=== PATIENT | female | born 1995 | race Caucasian/White ===

== ENCOUNTER 2018-08-08 00:39 | Emergency (ER) | payer MEDICAID ==
[2018-08-08] MEDS ORDERED: Ketorolac 60 MG/2 ML SDV IM ONE (00:47)
--- NOTE | 2018-08-08 00:49 | EDM.PDOC ---
ED HPI GENERAL MEDICAL PROBLEM - General Chief Complaint: Abdominal Pain Stated Complaint: CRAMPS Time Seen by Provider: 08/08/18 00:46 - History of Present Illness INITIAL COMMENTS - FREE TEXT/NARRATIVE: HISTORY AND PHYSICAL: History of present illness: Patient 22-year-old female with no significant past medical history presents with concern of abdominal cramping she had no vomiting no diarrhea no fever chills or other complaints she's here since she had to leave work for medical screening exam Review of systems: As per history of present illness and below otherwise all systems reviewed and negative. Past medical history: As per history of present illness and as reviewed below otherwise noncontributory. Surgical history: As per history of present illness and as reviewed below otherwise noncontributory. Social history: No reported history of drug or alcohol abuse. Family history: As per history of present illness and as reviewed below otherwise noncontributory. Physical exam: HEENT: Atraumatic, normocephalic, pupils reactive, negative for conjunctival pallor or scleral icterus, mucous membranes moist, throat clear, neck supple, nontender, trachea midline. Lungs: Clear to auscultation, breath sounds equal bilaterally, chest nontender. Heart: S1S2, regular, negative for clicks, rubs, or JVD. Abdomen: Soft, nondistended, nontender. Negative for masses or hepatosplenomegaly. Negative for costovertebral tenderness. Pelvis: Stable nontender. Genitourinary: Deferred. Rectal: Deferred. Extremities: Atraumatic, negative for cords or calf pain. Neurovascular unremarkable. Neuro: Awake, alert, oriented. Cranial nerves II through XII unremarkable. Cerebellum unremarkable. Motor and sensory unremarkable throughout. Exam nonfocal. Diagnostics: CBC CMP UA hCG Therapeutics: Toradol 60 mg IM Impression: #1 abdominal cramping #2 medical screening exam Definitive disposition and diagnosis as appropriate pending reevaluation and review of above. - Related Data Allergies Allergy/AdvReac Type Severity Reaction Status Date / Time No Known Allergies Allergy Verified 08/08/18 00:46 Home Meds: Home Meds . [No Known Home Meds] 08/08/18 [History] ED ROS GENERAL - Review of Systems Review Of Systems: ROS reveals no pertinent complaints other than HPI. ED EXAM, GENERAL - Physical Exam Exam: See Below (The dictation) Course - Orders/Labs/Meds Orders: Active Orders hr Category Date Time Status CBC WITH AUTO DIFF [HEME] Stat Lab 08/08/18 00:46 Ordered HCG QUALITATIVE,URINE [URCHEM] Stat Lab 08/08/18 00:47 Ordered Departure - Departure Time of Disposition: 00:48 Disposition: Home, Self-Care 01 Condition: Good Clinical Impression: Encounter for medical screening examination - Discharge Information Additional Instructions: The following information is given to patients seen in the emergency department who are being discharged to home. This information is to outline your options for follow-up care. We provide all patients seen in our emergency department with a follow-up referral. The need for follow-up, as well as the timing and circumstances, are variable depending upon the specifics of your emergency department visit. If you don't have a primary care physician on staff, we will provide you with a referral. We always advise you to contact your personal physician following an emergency department visit to inform them of the circumstance of the visit and for follow-up with them and/or the need for any referrals to a consulting specialist. The emergency department will also refer you to a specialist when appropriate. This referral assures that you have the opportunity for followup care with a specialist. All of these measure are taken in an effort to provide you with optimal care, which includes your followup. Under all circumstances we always encourage you to contact your private physician who remains a resource for coordinating your care. When calling for followup care, please make the office aware that this follow-up is from your recent emergency room visit. If for any reason you are refused follow-up, please contact the [facility] emergency department at and asked to speak to the emergency department charge nurse. Follow-up primary medical doctor Candy as directed and return as needed as discussed - My Orders Last 24 Hours: My Active Orders 08/08/18 00:46 CBC WITH AUTO DIFF [HEME] Stat 08/08/18 00:47 HCG QUALITATIVE,URINE [URCHEM] Stat - Assessment/Plan Last 24 Hours: My Active Orders 08/08/18 00:46 CBC WITH AUTO DIFF [HEME] Stat 08/08/18 00:47 HCG QUALITATIVE,URINE [URCHEM] Stat
[2018-08-08 01:37] LABS: CHLORIDE,CL 102 mmol/L (98-107); SODIUM,NA 141 mmol/L (136-145)
== END 2018-08-08 02:12 | disposition home or self-care (01) ==
LOC: MW.ED 00:39
DX: R10.9 Unspecified abdominal pain (principal)
CPT/HCPCS: 36415; 80053; 81003; 81025; 85025; 96372; 99284; J1885; 99283

== ENCOUNTER 2018-09-19 19:18 | Emergency (ER) | payer MEDICAID ==
[2018-09-19] MEDS ORDERED: Ondansetron 4 MG/2 ML SDV IVPUSH ONE (19:38)
[2018-09-19] MEDS ORDERED: Sodium Chloride 0.9% 1,000 ML IV ONE (19:38)
[2018-09-19] MEDS ORDERED: diphenhydrAMINE 50 MG/ML SDV IVPUSH ONE (19:38)
[2018-09-19] MEDS ORDERED: Sodium Chloride 0.9% 2.5 ML Syringe FLUSH PRN (19:38)
[2018-09-19] MEDS ORDERED: Sodium Chloride 0.9% 10 ML Syringe FLUSH PRN (19:38)
[2018-09-19] MEDS ORDERED: Ketorolac 30 MG/ML SDV IVPUSH ONE (19:38)
--- NOTE | 2018-09-19 19:42 | EDM.PDOC ---
ED HPI GENERAL MEDICAL PROBLEM - General Chief Complaint: Headache Stated Complaint: HEADACHE Time Seen by Provider: 09/19/18 19:31 - History of Present Illness INITIAL COMMENTS - FREE TEXT/NARRATIVE: HISTORY AND PHYSICAL: History of present illness: The patient is a healthy 22-year-old female who presents with complaints of frontal headache extending to the top of her head associated with nausea and no vomiting that has been ongoing, on and off in intensity, for the last 3 days. 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 She says she cannot recall the last time she had an eye exam. She has tried over-the -counter Tylenol but no other medications are preps. She has no fevers no chills no cough runny nose chest pain or shortness of breath and no abdominal complaints. The patient denies and says that she has an IUD in place. The patient has no neurosensory changes or weakness in her extremities and no midline neck or back pain, no recent history of trauma. The patient does admit that she lives in [place] on and has recently relocated here and the weather has caused her to feel off. She does have seasonal allergies and hayfever and is not sure if that is what triggering this. Review of systems: As per history of present illness and below otherwise all systems reviewed and negative. Past medical history: As per history of present illness and as reviewed below otherwise noncontributory. Surgical history: As per history of present illness and as reviewed below otherwise noncontributory. Social history: No reported history of drug or alcohol abuse. Family history: As per history of present illness and as reviewed below otherwise noncontributory. Physical exam: General: Well-developed well-nourished female who is nontoxic and vital signs were noted by me. HEENT: Atraumatic, normocephalic, pupils reactive, negative for conjunctival pallor or scleral icterus, mucous membranes moist, throat clear, neck supple, nontender, trachea midline. There is some mild tenderness with palpation of the maxillary and frontal sinuses and there is no cervical adenopathy or nuchal rigidity. The turbinates are boggy bilaterally Lungs: Clear to auscultation, breath sounds equal bilaterally, chest nontender. Heart: S1S2, regular, rate and rhythm no overt murmurs Abdomen: Soft, nondistended, nontender. Negative for masses or hepatosplenomegaly. Negative for costovertebral tenderness. Pelvis: Deferred Genitourinary: Deferred. Rectal: Deferred. Extremities: Atraumatic, pedal edema Neurovascular unremarkable. Neuro: Awake, alert, oriented. Cranial nerves II through XII unremarkable. Cerebellum unremarkable. Motor and sensory unremarkable throughout. Exam nonfocal. Diagnostics: CT of the head. UCG UA urine culture Therapeutics: IV fluids Zofran and Benadryl Toradol Impression: Headache with history of seasonal allergies and sinus issues, UTI Definitive disposition and diagnosis as appropriate pending reevaluation and review of above. headache Pain Score (Numeric/FACES): 7 - Related Data Allergies Allergy/AdvReac Type Severity Reaction Status Date / Time No Known Allergies Allergy Verified 09/19/18 19:28 Home Meds: Home Meds . 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: - Past Surgical History Female Surgical History: Reports: Other (See Below) Other Female Surgeries/Procedures: cervix sx Social & Family History - Family History Family Medical History: Noncontributory - Tobacco Use Smoking Status *Q: Current Every Day Smoker Years of Tobacco use: 1 Packs/Tins Daily: 0.5 - Caffeine Use Caffeine Use: Reports: None - Recreational Drug Use Recreational Drug Use: Yes Recreational Drug Type: Reports: Marijuana/Hashish Recreational Drug Use Frequency: Socially Recreational Drug Last Use: "last week" ED ROS GENERAL - Review of Systems Review Of Systems: ROS reveals no pertinent complaints other than HPI. ED EXAM, GENERAL - Physical Exam Exam: See Below (See dictation) Course - Vital Signs Last Recorded V/S: Last Vital Signs Temp 36.1 C 09/19/18 19:20 Pulse 89 09/19/18 20:51 Resp 16 09/19/18 20:51 BP 116/76 09/19/18 20:51 Pulse Ox 99 09/19/18 20:51 - Orders/Labs/Meds Orders: Active Orders 24 hr Category Date Time Status CULTURE URINE [RM] Stat Lab 09/19/18 19:43 Received Sodium Chloride 0.9% [Saline Flush] Med 09/19/18 19:38 Active 10 ml FLUSH ASDIRECTED PRN Sodium Chloride 0.9% [Saline Flush] Med 09/19/18 19:38 Active 2.5 ml FLUSH ASDIRECTED PRN Saline Lock Insert [OM.PC] Stat Oth 09/19/18 19:37 Ordered Medication Orders Sodium Chloride (Saline Flush) 10 ml FLUSH ASDIRECTED PRN PRN Reason: Keep Vein Open Last Admin: 09/19/18 19:52 Dose: 10 ml Sodium Chloride (Saline Flush) 2.5 ml FLUSH ASDIRECTED PRN PRN Reason: Keep Vein Open Last Admin: 09/19/18 19:52 Dose: 2.5 ml Labs: Laboratory Tests 09/19/18 09/19/18 Range/Units 19:43 19:43 Urine Color YELLOW Urine Appearance SLT CLOUDY Urine pH 6.0 (5.0-8.0) Ur Specific [place] 1.015 (1.001-1.035) Urine Protein NEGATIVE (NEGATIVE) mg/dL Urine Glucose (UA) NEGATIVE (NEGATIVE) mg/dL Urine Ketones NEGATIVE (NEGATIVE) mg/dL Urine Occult Blood LARGE H (NEGATIVE) Urine Nitrite NEGATIVE (NEGATIVE) Urine Bilirubin NEGATIVE (NEGATIVE) Urine Urobilinogen 0.2 (<2.0) EU/dL Ur Leukocyte Esterase MODERATE H (NEGATIVE) Urine RBC 4-8 (0-2/HPF) Urine WBC 4-7 (0-5/HPF) Ur Epithelial Cells MANY (NONE-FEW) Urine Bacteria 1+ H (NEGATIVE) Urine HCG, Qual NEGATIVE (NEGATIVE) Meds: Medications Generic Name Dose Route Start Last Admin Trade Name Freq PRN Reason Stop Dose Admin Sodium Chloride 10 ml 09/19/18 19:38 09/19/18 19:52 Saline Flush FLUSH 10 ml ASDIRECTED PRN Administration Keep Vein Open Sodium Chloride 2.5 ml 09/19/18 19:38 09/19/18 19:52 Saline Flush FLUSH 2.5 ml ASDIRECTED PRN Administration Keep Vein Open Discontinued Medications Generic Name Dose Route Start Last Admin Trade Name Freq PRN Reason Stop Dose Admin Diphenhydramine HCl 50 mg 09/19/18 19:38 09/19/18 19:52 Benadryl IVPUSH 08/05/19 19:39 50 mg ONETIME ONE Administration Sodium Chloride 1,000 mls @ 999 mls/hr 09/19/18 19:38 09/19/18 19:52 Normal Saline IV 09/19/18 20:38 999 mls/hr STAT ONE Administration Ketorolac Tromethamine 30 mg 09/19/18 19:38 09/19/18 19:52 Toradol IVPUSH 09/19/18 19:39 30 mg ONETIME ONE Administration Ondansetron HCl 4 mg 09/19/18 19:38 09/19/18 19:52 Zofran IVPUSH 09/19/18 19:39 4 mg ONETIME ONE Administration Departure - Departure Time of Disposition: 21:17 Disposition: Home, Self-Care 01 Condition: Good Clinical Impression: Headache Qualifiers: Headache type: unspecified Headache chronicity pattern: unspecified pattern Intractability: not intractable Qualified Code(s): R51 - Headache UTI (urinary tract infection) Qualifiers: Urinary tract infection type: site unspecified Hematuria presence: without hematuria Qualified Code(s): N39.0 - Urinary tract infection, site not specified - Discharge Information Referrals: PCP,None [Primary Care Provider] - Forms: ED Department Discharge Additional Instructions: The following information is given to patients seen in the emergency department who are being discharged to home. This information is to outline your options for follow-up care. We provide all patients seen in our emergency department with a follow-up referral. The need for follow-up, as well as the timing and circumstances, are variable depending upon the specifics of your emergency department visit. If you don't have a primary care physician on staff, we will provide you with a referral. We always advise you to contact your personal physician following an emergency department visit to inform them of the circumstance of the visit and for follow-up with them and/or the need for any referrals to a consulting specialist. The emergency department will also refer you to a specialist when appropriate. This referral assures that you have the opportunity for followup care with a specialist. All of these measure are taken in an effort to provide you with optimal care, which includes your followup. Under all circumstances we always encourage you to contact your private physician who remains a resource for coordinating your care. When calling for followup care, please make the office aware that this follow-up is from your recent emergency room visit. If for any reason you are refused follow-up, please contact the [facility] emergency department at and ask to speak to the emergency department charge nurse. [facility] Primary care- Internal Medicine and [place] [id number] [address] [place] [id number] Push hydration and try to avoid the heat. Please go and get an eye exam just at baseline and try to reduce your screen time as much as possible.. Please take the antibiotics as you have been prescribed for urinary urinary tract infection. Continue use [id number] Tylenol and add ibuprofen/Motrin or other [id number] meds as you choose. Please call and schedule a follow-up appointment in our clinic with one of our providers or with your provider for further care and reevaluation of these symptoms. Return to ER as needed and as discussed - My Orders Last 24 Hours: My Active Orders 09/19/18 19:37 Saline Lock Insert [OM.PC] Stat 09/19/18 19:38 Sodium Chloride 0.9% [Saline Flush] 10 ml FLUSH ASDIRECTED PRN Sodium Chloride 0.9% [Saline Flush] 2.5 ml FLUSH ASDIRECTED PRN 09/19/18 19:43 CULTURE URINE [RM] Stat - Assessment/Plan Last 24 Hours: My Active Orders 09/19/18 19:37 Saline Lock Insert [OM.PC] Stat 09/19/18 19:38 Sodium Chloride 0.9% [Saline Flush] 10 ml FLUSH ASDIRECTED PRN Sodium Chloride 0.9% [Saline Flush] 2.5 ml FLUSH ASDIRECTED PRN 09/19/18 19:43 CULTURE URINE [RM] Stat
--- NOTE | 2018-09-19 21:11 | CT ---
INDICATION: Headache TECHNIQUE: CT head without contrast. COMPARISON: None available FINDINGS: The ventricles and sulci are within normal limits. There is no mass effect or midline shift. There is no loss of burrell-white differentiation. There is no evidence of an acute intracranial hemorrhage. No acute calvarial fracture is seen. The visualized paranasal sinuses and mastoid air cells are clear. The visualized orbits are within normal limits. The adenoids and palatine tonsils are enlarged. IMPRESSION: No evidence of an acute intracranial hemorrhage, mass effect or loss of burrell-white differentiation. Dictated by Virgilio Chun MD @ 09/19/2018 9:10:16 PM Please note that all CT scans at this facility use dose modulation, iterative reconstruction, and/or weight-based dosing when appropriate to reduce radiation dose to as low as reasonably achievable. Dictated by: Virgilio Chun MD @ 09/19/2018 21:10:31 (Electronically Signed)
== END 2018-09-19 21:35 | disposition home or self-care (01) ==
LOC: MW.ED 19:18
DX: R51 Headache (principal); N39.0 Urinary tract infection, site not specified; F17.210 Nicotine dependence, cigarettes, uncomplicated
CPT/HCPCS: 70450; 81001; 81025; 87086; 87088; 87186; 96361; 96374; 96375; 99284; J1200; J1885; J2405; J7040

== ENCOUNTER 2018-12-08 21:03 | Emergency (ER) | payer SELFPAY ==
--- NOTE | 2018-12-08 21:14 | EDM.PDOC ---
ED HPI GENERAL MEDICAL PROBLEM - General Stated Complaint: COUGH Time Seen by Provider: 12/08/18 21:09 - History of Present Illness INITIAL COMMENTS - FREE TEXT/NARRATIVE: HISTORY AND PHYSICAL: History of present illness: Patient's 23-year-old female sensory concern of cough with posttussive emesis. Patient states she's had a cough for approximately 2 weeks and posttussive emesis tonight. There's been no fever chills shortness of breath or other complaints. Review of systems: As per history of present illness and below otherwise all systems reviewed and negative. Past medical history: As per history of present illness and as reviewed below otherwise noncontributory. Surgical history: As per history of present illness and as reviewed below otherwise noncontributory. Social history: No reported history of drug or alcohol abuse. Family history: As per history of present illness and as reviewed below otherwise noncontributory. Physical exam: HEENT: Atraumatic, normocephalic, pupils reactive, negative for conjunctival pallor or scleral icterus, mucous membranes moist, throat clear, neck supple, nontender, trachea midline. Lungs: Clear to auscultation, breath sounds equal bilaterally, chest nontender. Heart: S1S2, regular, negative for clicks, rubs, or JVD. Abdomen: Soft, nondistended, nontender. Negative for masses or hepatosplenomegaly. Negative for costovertebral tenderness. Pelvis: Stable nontender. Genitourinary: Deferred. Rectal: Deferred. Extremities: Atraumatic, negative for cords or calf pain. Neurovascular unremarkable. Neuro: Awake, alert, oriented. Cranial nerves II through XII unremarkable. Cerebellum unremarkable. Motor and sensory unremarkable throughout. Exam nonfocal. Diagnostics: Chest x-ray influenza screen Therapeutics: None Impression: #1 tracheobronchitis probable viral syndrome Definitive disposition and diagnosis as appropriate pending reevaluation and review of above. - Related Data Allergies Allergy/AdvReac Type Severity Reaction Status Date / Time No Known Allergies Allergy Verified 09/19/18 19:28 Home Meds: Home Meds . 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 ED EXAM, GENERAL - Physical Exam Exam: See Below (dictation) Course - Vital Signs Last Recorded V/S: Last Vital Signs Temp 36.4 C 12/08/18 21:20 Pulse 98 12/08/18 21:20 Resp 16 12/08/18 21:20 BP 135/71 12/08/18 21:20 Pulse Ox 98 12/08/18 21:20 - Orders/Labs/Meds Orders: Active Orders 24 hr Category Date Time Status CULTURE URINE [RM] Stat Lab 12/08/18 21:49 Received Labs: Laboratory Tests 12/08/18 Range/Units 21:49 Urine Color YELLOW Urine Appearance SLT CLOUDY Urine pH 6.0 (5.0-8.0) Ur Specific [place] 1.015 (1.001-1.035) Urine Protein NEGATIVE (NEGATIVE) mg/dL Urine Glucose (UA) NEGATIVE (NEGATIVE) mg/dL Urine Ketones NEGATIVE (NEGATIVE) mg/dL Urine Occult Blood NEGATIVE (NEGATIVE) Urine Nitrite NEGATIVE (NEGATIVE) Urine Bilirubin NEGATIVE (NEGATIVE) Urine Urobilinogen 0.2 (<2.0) EU/dL Ur Leukocyte Esterase SMALL H (NEGATIVE) Urine RBC NONE SEEN (0-2/HPF) Urine WBC 1-3 (0-5/HPF) Ur Epithelial Cells FEW (NONE-FEW) Urine Bacteria 1+ H (NEGATIVE) Urine Mucus LIGHT (NONE-MOD) Departure - Departure Time of Disposition: 23:13 Disposition: Home, Self-Care 01 Condition: Good Clinical Impression: Pneumonia UTI (urinary tract infection) Qualifiers: Urinary tract infection type: site unspecified Hematuria presence: without hematuria Qualified Code(s): N39.0 - Urinary tract infection, site not specified - Discharge Information Referrals: PCP,None [Primary Care Provider] - Additional Instructions: The following information is given to patients seen in the emergency department who are being discharged to home. This information is to outline your options for follow-up care. We provide all patients seen in our emergency department with a follow-up referral. The need for follow-up, as well as the timing and circumstances, are variable depending upon the specifics of your emergency department visit. If you don't have a primary care physician on staff, we will provide you with a referral. We always advise you to contact your personal physician following an emergency department visit to inform them of the circumstance of the visit and for follow-up with them and/or the need for any referrals to a consulting specialist. The emergency department will also refer you to a specialist when appropriate. This referral assures that you have the opportunity for followup care with a specialist. All of these measure are taken in an effort to provide you with optimal care, which includes your followup. Under all circumstances we always encourage you to contact your private physician who remains a resource for coordinating your care. When calling for followup care, please make the office aware that this follow-up is from your recent emergency room visit. If for any reason you are refused follow-up, please contact the [facility] emergency department at and asked to speak to the emergency department charge nurse. Augmentin as prescribed follow-up primary medical doctor as needed as discussed return as needed as discussed - My Orders Last 24 Hours: My Active Orders 12/08/18 21:49 CULTURE URINE [RM] Stat - Assessment/Plan Last 24 Hours: My Active Orders 12/08/18 21:49 CULTURE URINE [RM] Stat
--- NOTE | 2018-12-08 22:02 | CR ---
INDICATION: Shortness of breath, pain TECHNIQUE: Frontal view of the chest. COMPARISON: None FINDINGS/IMPRESSION: There is increased opacity of the peripheral left lung base which may reflect atelectasis or infiltrate. The right lung is clear. There is no sizable pleural effusion or pneumothorax. The cardiomediastinal silhouette is normal. The visualized osseous structures are unremarkable. Dictated by Luciano Simon MD @ Dec 08 2018 9:59PM Signed by Dr. Luciano Simon @ Dec 08 2018 10:01PM
[2018-12-08] MEDS ORDERED: Amoxicillin/Clavulanate K 875-125 MG Tab PO ONE (23:15)
== END 2018-12-08 23:26 | disposition home or self-care (01) ==
LOC: MW.ED 21:03
DX: J18.9 Pneumonia, unspecified organism (principal); N39.0 Urinary tract infection, site not specified; J40 Bronchitis, not specified as acute or chronic
CPT/HCPCS: 71045; 81001; 87086; 87088; 87186; 87804; 99283; A9270

== ENCOUNTER 2019-01-29 03:08 | Emergency (ER) | payer SELFPAY ==
[2019-01-29] MEDS ORDERED: Lidocaine 1% with EPINEPHrine 1:100,000 20 ML MDV INJECT ONE (03:25)
[2019-01-29] MEDS ORDERED: Bacitracin Oint 1 GM U/D Packet TOP ONE (03:26)
--- NOTE | 2019-01-29 03:38 | EDM.PDOC ---
ED HPI GENERAL MEDICAL PROBLEM - General Chief Complaint: Laceration Stated Complaint: CUT ON LT ARM Time Seen by Provider: 01/29/19 03:16 - History of Present Illness INITIAL COMMENTS - FREE TEXT/NARRATIVE: HISTORY AND PHYSICAL: History of present illness: The patient is a 23-year-old female who was brought here by her cousin after he noticed that she had multiple cuts on her left forearm which were self- inflicted. The patient here is very quiet and admits to me that they were self- inflicted but she will not tell me what's going on that triggered this. She denies any history of depression or anxiety and takes no medications and does not have a significant other. She does admit to drinking alcohol tonight but denies drug use or taking any [id number] medications. The cousin says he has not noticed her being depressed of late and they do live together and she does drink on the weekends but she has never done anything like this before and he is not sure where it originated from. He says he is not super close with her on a interpersonal level but they do live together and I do talk but not about any deep issues so he says he cannot offer much information about her psychological status or well-being. The patient tells me she has no physical complaints such as cough fever runny nose sore throat vomiting diarrhea abdominal pain and she has been eating and drinking normally. She denies but did have a child 3 years ago and states that her tetanus is up-to- date. She has no pain in her left forearm and is right-hand dominant. She has no numbness or tingling in her hand or forearm. She is not very forthcoming about tonight's events or why they were triggered and saying she is not sure why this happened and why she is feeling this way but is tearful throughout my conversation with her. She does tell me through the course of my interview with her that I can do whatever I want to help her and she does state when directly asked that she would like help The pt denies any history of cutting. Review of systems: As per history of present illness and below otherwise all systems reviewed and negative. Past medical history: As per history of present illness and as reviewed below otherwise noncontributory. Surgical history: As per history of present illness and as reviewed below otherwise noncontributory. Social history: No reported history of drug or alcohol abuse. Family history: As per history of present illness and as reviewed below otherwise noncontributory. Physical exam: General: Well-developed well-nourished mildly overweight female who is nontoxic and vital signs are noted by me. She is tearful on my evaluation but very quiet and not very forthcoming HEENT: Atraumatic, normocephalic, pupils reactive, negative for conjunctival pallor or scleral icterus, mucous membranes moist, throat clear, neck supple, nontender, trachea midline. Sclera are slightly injected bilaterally Lungs: Clear to auscultation, breath sounds equal bilaterally, chest nontender. Heart: S1S2, regular rate and rhythm no overt murmurs Abdomen: Soft, nondistended, nontender. Negative for masses or hepatosplenomegaly. Negative for costovertebral tenderness. Pelvis: Stable nontender. Genitourinary: Deferred. Rectal: Deferred. Extremities: Atraumatic and full range of motion of all extremities with the exception of the volar surface of the left forearm where there are 4 distinct laceration seen 3 of which are superficial and one extends to the subcutaneous tissue. There is a 16 cm laceration, a 19 cm laceration, an 8 cm laceration all of which are very superficial and run longitudinal in a lengthwise fashion along the volar surface of the forearm in erratic directions. There is only one laceration with any depth and its total length is 11 cm but only 9.5 cm of the total length extent to the subcutaneous tissue and there is no muscle or any deep structures visualized. The base can be seen and there are no foreign bodies appreciated. The compartment is soft and there is no soft tissue swelling and the patient has full intact function of the hand and the wrist with flexion extension and sensation. The legs are, negative for cords or calf pain. Neurovascular unremarkable. Neuro: Awake, alert, oriented. Cranial nerves II through XII unremarkable. Cerebellum unremarkable. Motor and sensory unremarkable throughout. Exam nonfocal. Diagnostics: CBC CMP TSH alcohol level of aspirin and Tylenol levels UA UCG UDS EKG Therapeutics: Cleansing of wounds by nursing, lidocaine with epinephrine for suture repair of the laceration with depth. Bacitracin and nonstick dressing applied by nursing Procedure note: After the wounds were irrigated they were all reexplored and there is only one that requires suture repair. The total length of that laceration is 11 cm but only 9.5 cm extending to the subcutaneous tissue requiring closure. Lidocaine with epinephrine was infused in the wound and the skin edges were reapproximated using a total number of # 13 sutures of 5-0 nylon placed in a simple interrupted fashion. There were no complications and the patient tolerated the procedure well. Steri straps were also applied to the laceration as well as to an of the other superficial lacerations per nursing the Bacitracin and nonstick dressing were applied. In my conversation with the patient I was very clear from the onset that aside from fixing her wounds we would need to be addressing the intent behind his wounds and her intention now that he of injuring herself. She does tell me that she regrets doing this but she cannot explain what triggered this and why she has performed this on her arm. I told her that she will need further evaluation as this is a very serious gesture and that she will need to be transferred to be evaluated by psychiatrist and she says that I "can do whatever I want". When directly asked if she would like help she starts crying and does not her head. She has just not very insightful into her disease process or why this occurred and her emotional state at this point. 0410: The case was discussed with one call who discussed with Dr. Lipscomb the psychiatrist at [facility] who accepts the patient for transfer. The patient was made aware of this and she is comfortable and willing to go but an emergency residential form will also be formed out by me. Impression: suicidal intent with multiple Lacerations of left forearm Definitive disposition and diagnosis as appropriate pending reevaluation and review of above. - Related Data Allergies Allergy/AdvReac Type Severity Reaction Status Date / Time No Known Allergies Allergy Verified 01/29/19 03:21 Home Meds: Home Meds . [No Known Home Meds] 08/08/18 [History] Past Medical History - Past Health History Medical/Surgical History: Denies Medical/Surgical History Genitourinary History: Reports: None [employer] History: Reports: - Infectious Disease History Infectious Disease History: Reports: None - Past Surgical History Female Surgical History: Reports: Other (See Below) Other Female Surgeries/Procedures: cervix sx Social & Family History - Family History Family Medical History: Noncontributory - Caffeine Use Caffeine Use: Reports: None ED ROS GENERAL - Review of Systems Review Of Systems: Comprehensive ROS is negative, except as noted in HPI. ED EXAM, SKIN/RASH Exam: See Below (see dictation) Course - Vital Signs Last Recorded V/S: Last Vital Signs Temp 36.7 C 01/29/19 03:19 Pulse 111 H 01/29/19 03:50 Resp 16 01/29/19 03:50 BP 127/92 H 01/29/19 03:50 Pulse Ox 98 01/29/19 03:50 - Orders/Labs/Meds Orders: Active Orders 24 hr Category Date Time Status Communication Order [RC] STAT Care 01/29/19 03:26 Active Communication Order [RC] STAT Care 01/29/19 04:19 Ordered EKG Documentation Completion [RC] STAT Care 01/29/19 03:25 Active DRUG SCREEN, URINE [URCHEM] Stat Lab 01/29/19 03:25 Ordered HCG QUALITATIVE,URINE [URCHEM] Stat Lab 01/29/19 03:25 Ordered UA RFX MART AND CULT IF INDIC [URIN] Stat Lab 01/29/19 03:25 Ordered Labs: Laboratory Tests 01/29/19 01/29/19 Range/Units 03:35 03:35 WBC 10.10 (4.0-11.0) K/uL RBC 5.20 (4.30-5.90) M/uL Hgb 15.9 (12.0-16.0) g/dL Hct 47.2 H (36.0-46.0) % MCV 90.8 (80.0-98.0) fL MCH 30.6 (27.0-32.0) pg MCHC 33.7 (31.0-37.0) g/dL RDW Std Deviation 43.6 (28.0-62.0) fl RDW Coeff of Brunilda 13 (11.0-15.0) % Plt Count 220 (150-400) K/uL MPV 11.80 (7.40-12.00) fL Neut % (Auto) 68.6 (48.0-80.0) % Lymph % (Auto) 27.7 (16.0-40.0) % [place] % (Auto) 3.3 (0.0-15.0) % Eos % (Auto) 0.2 (0.0-7.0) % Baso % (Auto) 0.2 (0.0-1.5) % Neut # (Auto) 6.9 H (1.4-5.7) K/uL Lymph # (Auto) 2.8 H (0.6-2.4) K/uL [place] # (Auto) 0.3 (0.0-0.8) K/uL Eos # (Auto) 0.0 (0.0-0.7) K/uL Baso # (Auto) 0.0 (0.0-0.1) K/uL Nucleated RBC % 0.0 /100WBC Nucleated RBCs # 0 K/uL Sodium 141 (136-145) mmol/L Potassium 3.4 L (3.5-5.1) mmol/L Chloride 104 (98-107) mmol/L Carbon Dioxide 27.0 (21.0-32.0) mmol/L BUN 7 (7.0-18.0) mg/dL Creatinine 0.9 (0.6-1.0) mg/dL Est Cr Clr Drug Dosing 78.20 mL/min Estimated GFR (MDRD) > 60.0 ml/min Glucose 88 (74-106) mg/dL Calcium 8.9 (8.5-10.1) mg/dL Total Bilirubin 0.5 (0.2-1.0) mg/dL AST 18 (15-37) IU/L ALT 26 (14-63) IU/L Alkaline Phosphatase 100 (46-116) U/L Total Protein 8.2 (6.4-8.2) g/dL Albumin 4.0 (3.4-5.0) g/dL Globulin 4.2 H (2.6-4.0) g/dL Albumin/Globulin Ratio 1.0 (0.9-1.6) TSH 3rd Generation 3.25 (0.36-3.74) uIU/mL Salicylates 3.7 (0-20) mg/dL Acetaminophen <2.0 ug/mL Ethyl Alcohol 172 mg/dL Meds: Medications Discontinued Medications Generic Name Dose Route Start Last Admin Trade Name Freq PRN Reason Stop Dose Admin Bacitracin 2 dose 01/29/19 03:26 01/29/19 03:44 Bacitracin Oint 1 Gm TOP 01/29/19 03:27 2 dose ONETIME ONE Administration Lidocaine/Epinephrine 20 ml 01/29/19 03:25 01/29/19 03:44 Xylocaine 1% With Epinephrine 1:100,000 INJECT 01/29/19 03:26 20 ml ONETIME ONE Administration Departure - Departure Time of Disposition: 04:22 Disposition: DC/Tfer to Psych Hosp/Unit 65 Condition: Good Clinical Impression: Laceration of arm, left, multiple sites Qualifiers: Encounter type: initial encounter Qualified Code(s): S41.112A - Laceration without foreign body of left upper arm, initial encounter Suicide and self-inflicted injury Qualifiers: Encounter type: initial encounter Qualified Code(s): X83.8XXA - Intentional self-harm by other specified means, initial encounter - Discharge Information Referrals: PCP,None [Primary Care Provider] - Forms: ED Department Discharge Sepsis Event Note - Evaluation Sepsis Screening Result: No Definite Risk - Focused Exam Vital Signs: Vital Signs Temp Pulse Resp BP Pulse Ox 01/29/19 03:50 111 H 16 127/92 H 98 01/29/19 03:19 36.7 C 121 H 16 151/121 H 97 Date Exam was Performed: 01/29/19 Time Exam was Performed: 04:19 - My Orders Last 24 Hours: My Active Orders 01/29/19 03:25 EKG Documentation Completion [RC] STAT DRUG SCREEN, URINE [URCHEM] Stat HCG QUALITATIVE,URINE [URCHEM] Stat UA RFX MART AND CULT IF INDIC [URIN] Stat 01/29/19 03:26 Communication Order [RC] STAT 01/29/19 04:19 Communication Order [RC] STAT - Assessment/Plan Last 24 Hours: My Active Orders 01/29/19 03:25 EKG Documentation Completion [RC] STAT DRUG SCREEN, URINE [URCHEM] Stat HCG QUALITATIVE,URINE [URCHEM] Stat UA RFX MART AND CULT IF INDIC [URIN] Stat 01/29/19 03:26 Communication Order [RC] STAT 01/29/19 04:19 Communication Order [RC] STAT
[2019-01-29 04:08] LABS: BLOOD UREA NITROGEN,BUN 7 mg/dL (7.0-18.0); CHLORIDE,CL 104 mmol/L (98-107); GLUCOSE RANDOM 88 mg/dL (74-106); POTASSIUM,K 3.4 mmol/L (3.5-5.1); SODIUM,NA 141 mmol/L (136-145)
[2019-01-29 04:09] LABS: ACETAMINOPHEN <2.0 ug/mL
== END 2019-01-29 05:40 ==
LOC: MW.ED 03:08
DX: S51.812A Laceration without foreign body of left forearm, initial encounter (principal); X78.9XXA Intentional self-harm by unspecified sharp object, initial encounter; Y93.G3 Activity, cooking and baking
CPT/HCPCS: 12004; 36415; 80053; 80305-QW; 81003; 81025; 84443; 85025; 93005; 99284; 99284-25; G0480

== ENCOUNTER 2019-02-12 17:35 | Emergency (ER) | payer SELFPAY | END 2019-02-12 17:51 | disposition home or self-care (01) | LOC: MW.ED 17:35 | DX: Z53.21 Procedure and treatment not carried out due to patient leaving prior to being seen by health care provider (principal) ==

== ENCOUNTER 2019-05-08 21:10 | Emergency (ER) | payer SELFPAY ==
--- NOTE | 2019-05-08 22:29 | EDM.PDOC ---
ED HPI GENERAL MEDICAL PROBLEM - General Chief Complaint: Respiratory Problem Stated Complaint: COUGH AND FEVER Time Seen by Provider: 05/08/19 22:29 Source of Information: Reports: Patient History Limitations: Reports: No Limitations - History of Present Illness INITIAL COMMENTS - FREE TEXT/NARRATIVE: HISTORY AND PHYSICAL: History of present illness: Patient is a 23-year-old female presents to the ED With complaint of cough x 4 days. She reports subjective fevers. Denies chest pain, shortness of breath, nausea, vomiting, abdominal pain. She denies significant past medical history. Review of systems: As per history of present illness and below otherwise all systems reviewed and negative. Past medical history: As per history of present illness and as reviewed below otherwise noncontributory. Surgical history: As per history of present illness and as reviewed below otherwise noncontributory. Social history: No reported history of drug or alcohol abuse. Family history: As per history of present illness and as reviewed below otherwise noncontributory. Physical exam: General: Patient sitting comfortably in no acute distress and nontoxic appearing HEENT: Atraumatic, normocephalic, pupils reactive, negative for conjunctival pallor or scleral icterus, mucous membranes moist, throat clear, neck supple, nontender, trachea midline. No meningeal signs. Lungs: Clear to auscultation, breath sounds equal bilaterally, chest nontender. Heart: S1S2, regular, negative for clicks, rubs, or overt murmur. Extremities: Atraumatic, negative for cords or calf pain. Neurovascular unremarkable. Neuro: Awake, alert, oriented. Cranial nerves II through XII unremarkable. Cerebellum unremarkable. Motor and sensory unremarkable throughout. Exam nonfocal. Notes: Diagnostics: none Therapeutics: none Prescriptions: Ventolin inhaler Impression: URI Plan: Use inhaler as needed as discussed Follow up with primary care provider Return to ED as needed as discussed Definitive disposition and diagnosis as appropriate pending reevaluation and review of above. back Pain Score (Numeric/FACES): 6 - Related Data Allergies Allergy/AdvReac Type Severity Reaction Status Date / Time No Known Allergies Allergy Verified 05/08/19 21:55 Home Meds: Home Meds Albuterol [Ventolin HFA] 1 puff INH Q4H #1 inhaler 05/08/19 [Rx] Past Medical History - Past Health History Medical/Surgical History: Denies Medical/Surgical History HEENT History: Reports: None Cardiovascular History: Reports: None Respiratory History: Reports: None Gastrointestinal History: Reports: None Genitourinary History: Reports: None VP RESPIRATORY History: Reports: Musculoskeletal History: Reports: None Neurological History: Reports: None Psychiatric History: Reports: Anxiety, Depression Endocrine/Metabolic History: Reports: None Hematologic History: Reports: None Dermatologic History: Reports: None - Infectious Disease History Infectious Disease History: Reports: None - Past Surgical History Female Surgical History: Reports: Other (See Below) Other Female Surgeries/Procedures: cervix sx Social & Family History - Family History Family Medical History: Noncontributory - Tobacco Use Smoking Status *Q: Never Smoker - Caffeine Use Caffeine Use: Reports: None - Recreational Drug Use Recreational Drug Use: Yes Recreational Drug Type: Reports: Marijuana/Hashish ED ROS GENERAL - Review of Systems Review Of Systems: Comprehensive ROS is negative, except as noted in HPI. ED EXAM, GENERAL - Physical Exam Exam: See Below (see dictation) Course - Vital Signs Last Recorded V/S: Last Vital Signs Temp 97.5 F 05/08/19 21:56 Pulse 99 05/08/19 21:56 Resp 20 05/08/19 21:56 BP 117/72 05/08/19 21:56 Pulse Ox 98 05/08/19 21:56 Departure - Departure Time of Disposition: 22:28 Disposition: Home, Self-Care 01 Condition: Good Clinical Impression: URI (upper respiratory infection) - Discharge Information Prescriptions: Albuterol [Ventolin HFA] 1 puff INH Q4H #1 inhaler Referrals: PCP,None [Primary Care Provider] - Forms: ED Department Discharge Additional Instructions: The following information is given to patients seen in the emergency department who are being discharged to home. This information is to outline your options for follow-up care. We provide all patients seen in our emergency department with a follow-up referral. The need for follow-up, as well as the timing and circumstances, are variable depending upon the specifics of your emergency department visit. If you don't have a primary care physician on staff, we will provide you with a referral. We always advise you to contact your personal physician following an emergency department visit to inform them of the circumstance of the visit and for follow-up with them and/or the need for any referrals to a consulting specialist. The emergency department will also refer you to a specialist when appropriate. This referral assures that you have the opportunity for follow-up care with a specialist. All of these measure are taken in an effort to provide you with optimal care, which includes your follow-up. Under all circumstances we always encourage you to contact your private physician who remains a resource for coordinating your care. When calling for follow-up care, please make the office aware that this follow-up is from your recent emergency room visit. If for any reason you are refused follow-up, please contact the [facility] Emergency Department at and asked to speak to the emergency department charge nurse. [facility] [address] [place] [id number] [address] Use inhaler as needed as discussed Follow up with primary care provider Return to ED as needed as discussed Sepsis Event Note - Evaluation Sepsis Screening Result: No Definite Risk - Focused Exam Vital Signs: Vital Signs Temp Pulse Resp BP Pulse Ox 05/08/19 21:56 97.5 F 99 20 117/72 98 Date Exam was Performed: 05/08/19 Time Exam was Performed: 22:30
== END 2019-05-08 22:45 | disposition home or self-care (01) ==
LOC: MW.ED 21:10
DX: J06.9 Acute upper respiratory infection, unspecified (principal)
CPT/HCPCS: 99283

== ENCOUNTER 2019-07-02 11:09 | Emergency (ER) | payer SELFPAY ==
[2019-07-02] MEDS ORDERED: Sodium Chloride 0.9% 1,000 ML IV ONE (11:11)
--- NOTE | 2019-07-02 11:18 | EDM.PDOC ---
ED HPI GENERAL MEDICAL PROBLEM - General Stated Complaint: PASSED OUT Time Seen by Provider: 07/02/19 11:11 Source of Information: Reports: Patient History Limitations: Reports: No Limitations - History of Present Illness INITIAL COMMENTS - FREE TEXT/NARRATIVE: HISTORY AND PHYSICAL: History of present illness: Patient is a 23-year-old female who is brought to the emergency room by ambulance after a bystander called due to seeing her passed out on a lawn. Patient states that she had been drinking alcohol last evening, last drink around midnight (will not share what/how much she drank). This morning she had gone outside to wait for friend to pick her up when she "fell asleep". EMS states that she is alert, oriented but is agreeable to coming to the emergency room for evaluation. Currently she is asymptomatic and offers no complaints or concerns. She does have multiple superficial lacerations to left forearm which she states she self inflicted although is not suicidal. She denies any drug abuse. Patient denies any fever, chills, headache, change in vision, syncope or near syncope. Denies any chest pain, back pain, shortness of breath or cough. Denies any abdominal pain, nausea, vomiting, diarrhea, constipation or dysuria. Has not noted any blood in urine or stool. Denies any chance of . Tdap is UTD. She denies any injury or trauma. Review of systems: As per history of present illness and below otherwise all systems reviewed and negative. Past medical history: As per history of present illness and as reviewed below otherwise noncontributory. Surgical history: As per history of present illness and as reviewed below otherwise noncontributory. Social history: See social history for further information Family history: As per history of present illness and as reviewed below otherwise noncontributory. Physical exam: General: Well-developed and well-nourished 23-year-old female. Alert and appropriate for age. Nontoxic-appearing and in no acute distress. HEENT: Atraumatic, normocephalic, pupils equal and reactive bilaterally, negative for conjunctival pallor or scleral icterus, mucous membranes moist, TMs normal bilaterally, throat clear, neck supple, nontender, trachea midline. No drooling or trismus noted. No meningeal signs. No hot potato voice noted. Lungs: Clear to auscultation, breath sounds equal bilaterally, chest nontender. Heart: S1S2, regular rate and rhythm without overt murmur Abdomen: Soft, nondistended, nontender. Negative for masses or costovertebral tenderness. Pelvis: Stable nontender. Skin: Multiple superficial lacerations to left forearm. Large midline scar noted to her left forearm with keloid formation. Otherwise skin is intact, warm , dry. No lesions or rashes noted. Extremities: Moves all extremities per self without difficulty or deficits, negative for cords or calf pain. Neurovascular unremarkable. Neuro: Awake, alert, oriented. Cranial nerves II through XII unremarkable. Cerebellum unremarkable. Motor and sensory unremarkable throughout. Exam nonfocal. Notes: Once nursing staff has gone in to start an IV and draw labs she now declines wanting any diagnostics done at this time. Again she was asked about the superficial lacerations to her forearms and she declines having any thoughts of suicide or harming others. She was informed that she does need to have a ride home if she would like to be discharged since she had alcohol earlier this evening and is not allowing lab work to be done at this time. She is alert, oriented, answering questions appropriately and ambulatory without any difficulty. Nursing staff was able to find a family member to pick patient up. Supportive care measures were reviewed and discussed. Voices understanding and is agreeable to plan of care. Denies any further questions or concerns at this time. Diagnostics: CBC, CMP, UA, HCGU, Drug Screen Therapeutics: IV fluids Prescription: None Impression: Alcohol abuse Lacerations, left forearm Plan: 1. Please consider decreasing or stopping your alcohol consumption. 2. Get plenty of rest and increase your oral fluids. 3. Follow up with you primary care provider. Return to the ED as needed and as discussed. Definitive disposition and diagnosis as appropriate pending reevaluation and review of above. - Related Data Allergies Allergy/AdvReac Type Severity Reaction Status Date / Time No Known Allergies Allergy Verified 07/02/19 11:17 Home Meds: Home Meds . 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: Musculoskeletal History: Reports: None Neurological History: Reports: None Psychiatric History: Reports: Anxiety, Depression Endocrine/Metabolic History: Reports: None Hematologic History: Reports: None Dermatologic History: Reports: None - Infectious Disease History Infectious Disease History: Reports: None - Past Surgical History Female Surgical History: Reports: Other (See Below) Other Female Surgeries/Procedures: cervix sx Social & Family History - Family History Family Medical History: Noncontributory - Caffeine Use Caffeine Use: Reports: None ED ROS GENERAL - Review of Systems Review Of Systems: Comprehensive ROS is negative, except as noted in HPI. ED EXAM, GENERAL - Physical Exam Exam: See Below (See dictation) Course - Vital Signs Last Recorded V/S: Last Vital Signs Temp 97.9 F 07/02/19 11:18 Pulse 121 H 07/02/19 11:18 Resp 21 H 07/02/19 11:18 BP 114/79 07/02/19 11:18 Pulse Ox 16 L 07/02/19 11:18 - Orders/Labs/Meds Orders: Active Orders 24 hr Category Date Time Status CBC WITH AUTO DIFF [HEME] Stat Lab 07/02/19 11:11 Ordered COMPREHENSIVE METABOLIC PN,CMP [CHEM] Stat Lab 07/02/19 11:11 Ordered DRUG SCREEN, URINE [URCHEM] Stat Lab 07/02/19 11:11 Ordered ETHANOL BLOOD MEDICAL [CHEM] Stat Lab 07/02/19 11:11 Ordered HCG QUALITATIVE,URINE [URCHEM] Stat Lab 07/02/19 11:11 Ordered UA RFX MART AND CULT IF INDIC [URIN] Stat Lab 07/02/19 11:11 Ordered Meds: Medications Discontinued Medications Generic Name Dose Route Start Last Admin Trade Name Ludivina PRN Reason Stop Dose Admin Sodium Chloride 1,000 mls @ 999 mls/hr 07/02/19 11:11 07/02/19 11:26 Normal Saline IV 07/02/19 12:11 Not Given STAT ONE Departure - Departure Time of Disposition: 12:34 Disposition: Home, Self-Care 01 Clinical Impression: Alcohol abuse Laceration of arm, left, multiple sites Qualifiers: Encounter type: initial encounter Qualified Code(s): S41.112A - Laceration without foreign body of left upper arm, initial encounter - Discharge Information Instructions: Alcohol Intoxication, [id number] Referrals: PCP,None [Primary Care Provider] - Forms: ED Department Discharge Additional Instructions: The following information is given to patients seen in the emergency department who are being discharged to home. This information is to outline your options for follow-up care. We provide all patients seen in our emergency department with a follow-up referral. The need for follow-up, as well as the timing and circumstances, are variable depending upon the specifics of your emergency department visit. If you don't have a primary care physician on staff, we will provide you with a referral. We always advise you to contact your personal physician following an emergency department visit to inform them of the circumstance of the visit and for follow-up with them and/or the need for any referrals to a consulting specialist. The emergency department will also refer you to a specialist when appropriate. This referral assures that you have the opportunity for follow-up care with a specialist. All of these measure are taken in an effort to provide you with optimal care, which includes your follow-up. Under all circumstances we always encourage you to contact your private physician who remains a resource for coordinating your care. When calling for follow-up care, please make the office aware that this follow-up is from your recent emergency room visit. If for any reason you are refused follow-up, please contact the [facility] Emergency Department at and asked to speak to the emergency department charge nurse. [facility] [address] [place] [address] [place] [address] 1. Please consider decreasing or stopping your alcohol consumption. 2. Get plenty of rest and increase your oral fluids. 3. Follow up with you primary care provider. Return to the ED as needed and as discussed. Sepsis Event Note - Focused Exam Vital Signs: Vital Signs Temp Pulse Resp BP Pulse Ox 07/02/19 11:18 97.9 F 121 H 21 H 114/79 16 L Date Exam was Performed: 07/02/19 Time Exam was Performed: 12:34 - My Orders Last 24 Hours: My Active Orders 07/02/19 11:11 CBC WITH AUTO DIFF [HEME] Stat COMPREHENSIVE METABOLIC PN,CMP [CHEM] Stat DRUG SCREEN, URINE [URCHEM] Stat ETHANOL BLOOD MEDICAL [CHEM] Stat HCG QUALITATIVE,URINE [URCHEM] Stat UA RFX MART AND CULT IF INDIC [URIN] Stat - Assessment/Plan Last 24 Hours: My Active Orders 07/02/19 11:11 CBC WITH AUTO DIFF [HEME] Stat COMPREHENSIVE METABOLIC PN,CMP [CHEM] Stat DRUG SCREEN, URINE [URCHEM] Stat ETHANOL BLOOD MEDICAL [CHEM] Stat HCG QUALITATIVE,URINE [URCHEM] Stat UA RFX MART AND CULT IF INDIC [URIN] Stat
== END 2019-07-02 12:48 | disposition home or self-care (01) ==
LOC: MW.ED 11:09
DX: F10.10 Alcohol abuse, uncomplicated (principal); S51.812A Laceration without foreign body of left forearm, initial encounter; X78.9XXA Intentional self-harm by unspecified sharp object, initial encounter
CPT/HCPCS: 99282; 99284

== ENCOUNTER 2019-12-10 15:38 | Emergency (ER) | payer MEDICAID ==
[2019-12-10] MEDS ORDERED: Ibuprofen 400 MG Tab PO ONE (16:10)
[2019-12-10] MEDS ORDERED: Acetaminophen 500 MG Tab PO ONE (16:10)
[2019-12-10] MEDS ORDERED: Diphtheria,Pertussis(Acell),Tetanus Vaccine 0.5 ML Syringe IM ONE (16:10)
--- NOTE | 2019-12-10 16:13 | EDM.PDOC ---
ED HPI GENERAL MEDICAL PROBLEM - General Chief Complaint: Lower Extremity Injury/Pain Stated Complaint: RIGHT ANKLE INJURY Time Seen by Provider: 12/10/19 15:39 Source of Information: Reports: Patient History Limitations: Reports: No Limitations - History of Present Illness INITIAL COMMENTS - FREE TEXT/NARRATIVE: 24-year-old female with no past medical history presenting with an ankle injury and a laceration to her buttock. Around 1:00 this morning, patient had been drinking alcohol and was going to a convenience store when she slipped on the ice and fell. She twisted her right ankle and landed on her buttocks. Since then, she has had difficulty bearing weight on her right ankle, complaining of pain and swelling to the right lateral malleolus. Denies any numbness or tingling to the right lower extremity. Her mother was helping her out this morning and noticed that she had a laceration to the right buttock as well. Patient was not aware of this. She is uncertain of her tetanus immunization status. No self treatment prior to arrival. Past medical history: Reviewed, no additional pertinent history. Surgical history: Reviewed in system, no additional pertinent history. Social history: Reviewed in system, no additional pertinent history. Family history: Reviewed in system, no additional pertinent history. PHYSICAL EXAM Vital signs reviewed. Nursing notes reviewed. Constitutional: Awake, alert, non-distressed. Head: Normocephalic, atraumatic. Eyes: EOMI, conjunctiva normal, no discharge, no scleral icterus. Ears, Nose, Throat: External ears and nose normal, moist oral mucosa. Cardiovascular: 2+ right DP pulse, capillary refill less than 2 seconds in the right foot. Pulmonary: normal work of breathing, no accessory muscle use. Abdomen/GI: Soft, nontender, nondistended, no guarding or rigidity, no masses. Musculoskeletal: Mild swelling and tenderness to the right lateral malleolus. 3 cm clean appearing linear laceration to the right buttock. Integumentary: Appropriate color for ethnicity, warm, dry, no pallor or jaundice, no rash. Neurologic: Alert, answering questions appropriately, normal speech, no facial droop, moving all extremities well. Sensation intact to light touch in the right foot. Psychiatric: Appropriate mood and affect, normal thought process. R ankle Pain Score (Numeric/FACES): 4 - Related Data Allergies Allergy/AdvReac Type Severity Reaction Status Date / Time No Known Allergies Allergy Verified 12/10/19 15:49 Home Meds: Home Meds . 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: Musculoskeletal History: Reports: None Neurological History: Reports: None Psychiatric History: Reports: Anxiety, Depression Endocrine/Metabolic History: Reports: None Hematologic History: Reports: None Dermatologic History: Reports: None - Infectious Disease History Infectious Disease History: Reports: None - Past Surgical History Female Surgical History: Reports: Other (See Below) Other Female Surgeries/Procedures: cervix sx Social & Family History - Family History Family Medical History: Noncontributory - Tobacco Use Tobacco Use Status *Q: Current Every Day Tobacco User Years of Tobacco use: 1 Packs/Tins Daily: 0.2 - Caffeine Use Caffeine Use: Reports: Coffee, Soda - Recreational Drug Use Recreational Drug Use: No Review of Systems - Review of Systems Review Of Systems: See Below ED EXAM, GENERAL - Physical Exam Exam: See Below Course - Vital Signs Text/Narrative:: 24-year-old female with right ankle injury and right buttock laceration after a fall. Neurovascularly intact in the right foot. X-rays negative for bony injury, suspect ankle fracture. Given a tetanus immunization booster. The buttock laceration is approximately 15 hours old and is too old to suture due to risk of infection with wound closure. It was cleansed and bandaged. Suspect ankle sprain. Patient will be given a removable ankle splint and provided with crutches. Recommended [id number] Tylenol Motrin as needed for pain. Recommended primary care follow-up in 1 to 2 weeks for reevaluation, as needed. Provided crutches and removable Aircast splint for right ankle sprain, duration: 1 month. Plan: Patient is stable to discharge home with outpatient primary care clinic follow-up. Strict emergency department return precautions were provided, patient indicated understanding. All questions were answered prior to depar ture. Discharged in good condition. Last Recorded V/S: Last Vital Signs Temp 36.4 C 12/10/19 15:44 Pulse 113 H 12/10/19 15:44 Resp 17 12/10/19 15:44 BP 144/85 H 12/10/19 15:44 Pulse Ox 98 12/10/19 15:44 - Orders/Labs/Meds Orders: Active Orders 24 hr Category Date Time Status Vaccines to be Administered [RC] PER UNIT ROUTINE Care 12/10/19 16:10 Active Meds: Medications Discontinued Medications Generic Name Dose Route Start Last Admin Trade Name Freq PRN Reason Stop Dose Admin Acetaminophen 1,000 mg 12/10/19 16:10 12/10/19 16:31 Tylenol Extra Strength PO 12/10/19 16:11 1,000 mg ONETIME ONE Administration Diphtheria/Tetanus/Acell Pertussis 0.5 ml 12/10/19 16:10 12/10/19 16:28 Adacel IM 12/10/19 16:11 0.5 ml .ONCE ONE Administration Ibuprofen 400 mg 12/10/19 16:10 12/10/19 16:31 Motrin PO 12/10/19 16:11 400 mg ONETIME ONE Administration Departure - Departure Time of Disposition: 17:04 Disposition: Home, Self-Care 01 Condition: Good Clinical Impression: Laceration of buttock Right ankle sprain Qualifiers: Encounter type: initial encounter Involved ligament of ankle: unspecified ligament Qualified Code(s): S93.401A - Sprain of unspecified ligament of right ankle, initial encounter Fall from slipping on ice Qualifiers: Encounter type: initial encounter Qualified Code(s): W00.9XXA - Unspecified fall due to ice and snow, initial encounter - Discharge Information *PRESCRIPTION DRUG MONITORING PROGRAM REVIEWED*: Not Applicable *COPY OF PRESCRIPTION DRUG MONITORING REPORT IN PATIENT TREY: Not Applicable Instructions: How to Use a Stirrup Ankle Brace, [id number], Ankle Sprain, Nonsutured Laceration Care Referrals: [facility] [Provider Group] - 1 Week (Follow-up with any concerns.) Forms: ED Department Discharge Additional Instructions: You were seen in the emergency department for an ankle injury and a cut on your buttock. X-rays did not demonstrate a broken bone of your ankle joint. It is likely that you have sprained your ankle. We will give you a removable splint and crutches. You can use ice packs and I recommend [id number] Tylenol Motrin as needed for pain. I recommend [id number] extra strength acetaminophen (1000 mg every 6 hours) and ibuprofen (400 mg every 6 hours) to help treat your pain. The cut on your buttock is too old to suture as it will likely become infected. We will show you how to apply bandages, change these once daily and monitor for redness, swelling, or fever of 100.4 or higher. Please return the emergency department immediately if your symptoms worsen or if you feel worse. Thank you for choosing the [facility] emergency department in [place] for your medical needs today. It was a pleasure caring for you. The following information is given to patients seen in the emergency department who are being discharged. This information is to outline your options for follow-up care. We provide all patients seen in our emergency department with a follow-up referral. The need for follow-up, as well as the timing and circumstances, are variable depending upon the specifics of your emergency department visit. If you don't have a primary care physician on staff, we will provide you with a referral. We always advise you to contact your personal physician following an emergency department visit to inform them of the circumstance of the visit and for follow-up with them and/or the need for any referrals to a consulting specialist. The emergency department will also refer you to a specialist when appropriate. This referral assures that you have the opportunity for follow-up care with a specialist. All of these measure are taken in an effort to provide you with optimal care, which includes your follow-up. Under all circumstances we always encourage you to contact your private physician who remains a resource for coordinating your care. When calling for follow-up care, please make the office aware that this follow-up is from your recent emergency room visit. If for any reason you are refused follow-up, please contact the [facility] Emergency Department at and asked to speak to the emergency department charge nurse. If you do not have a primary care physician that is caring for you, you can contact these clinics below to set up an appointment to establish care: [facility] [address], [place] [address] [facility] [address] [place] [id number] Sepsis Event Note (ED) - Evaluation Sepsis Screening Result: No Definite Risk - Focused Exam Vital Signs: Vital Signs Temp Pulse Resp BP Pulse Ox 12/10/19 15:44 36.4 C 113 H 17 144/85 H 98 - My Orders Last 24 Hours: My Active Orders 12/10/19 16:10 Vaccines to be Administered [RC] PER UNIT ROUTINE - Assessment/Plan Last 24 Hours: My Active Orders 12/10/19 16:10 Vaccines to be Administered [RC] PER UNIT ROUTINE
--- NOTE | 2019-12-10 17:00 | CR ---
INDICATION: Right ankle pain. TECHNIQUE: Three views of the right ankle. COMPARISON: No prior. FINDINGS: No acute fracture or malalignment. Joint spaces are maintained. No radiopaque foreign body or soft tissue gas. IMPRESSION: No acute fracture or malalignment. Dictated by Derrick Wilson MD @ 12/10/2019 4:58:50 PM Dictated by: Derrick Wilson MD @ 12/10/2019 16:58:57 (Electronically Signed)
== END 2019-12-10 17:44 | disposition home or self-care (01) ==
LOC: MW.ED 15:38
DX: S31.811A Laceration without foreign body of right buttock, initial encounter (principal); S93.401A Sprain of unspecified ligament of right ankle, initial encounter; F17.210 Nicotine dependence, cigarettes, uncomplicated; Z23 Encounter for immunization; W00.9XXA Unspecified fall due to ice and snow, initial encounter
CPT/HCPCS: 73610; 90471; 90715; 99283; A9270

== ENCOUNTER 2020-03-06 13:57 | Emergency (ER) | payer MEDICAID ==
--- NOTE | 2020-03-06 14:40 | EDM.PDOC ---
ED HPI GENERAL MEDICAL PROBLEM - General Chief Complaint: General Stated Complaint: FLU SYMTOPMS Time Seen by Provider: 03/06/20 13:59 Source of Information: Reports: Patient History Limitations: Reports: No Limitations - History of Present Illness INITIAL COMMENTS - FREE TEXT/NARRATIVE: HISTORY AND PHYSICAL: History of present illness: Patient is a 24-year-old female who presents to the emergency room with her daughter with complaints of sore throat and generalized body aches. Mom states she is concerned she may have strep throat or COVID-19. Patient denies any fever, chills, headache, change in vision, syncope or near syncope. Denies any chest pain, back pain, shortness of breath or cough. Denies any abdominal pain, nausea, vomiting, diarrhea, constipation or dysuria. Has not noted any blood in urine or stool. No concern for . Patient has been eating and drinking appropriately. Review of systems: As per history of present illness and below otherwise all systems reviewed and negative. Past medical history: As per history of present illness and as reviewed below otherwise noncontributory. Surgical history: As per history of present illness and as reviewed below otherwise noncontributory. Social history: See social history for further information Family history: As per history of present illness and as reviewed below otherwise noncontri butory. Physical exam: General: Well developed and well nourished. Alert and orientated x 3. Nontoxic in appearance and in no acute distress. Vital signs are stable and have been reviewed by me. Nursing notes were reviewed. HEENT: Atraumatic, normocephalic, pupils equal and reactive bilaterally, negative for conjunctival pallor or scleral icterus, mucous membranes moist, TMs normal bilaterally, throat erythematous without exudate or fullness/pillar shifting, neck supple, nontender, trachea midline. No drooling or trismus noted. No meningeal signs. No hot potato voice noted. Lungs: Clear to auscultation bilaterally. No wheezes, rales, or rhonchi. Chest nontender. Normal work of breathing, no accessory muscles used. Heart: S1S2, regular rate and rhythm without overt murmur, gallops, or rubs. No JVD. No peripheral edema Abdomen: Soft, nondistended, nontender. Normoactive bowel sounds. Negative for masses or costovertebral tenderness. Pelvis: Stable nontender. Genitourinary/Rectal: Deferred. Skin: Intact, warm, dry. No lesions or rashes noted. Hematologic: No petechiae or purpra. Mucosa appropriate color and normal nail bed color and refill. Extremities: Atraumatic, moves all extremities per self without difficulty or deficits, negative for cords or calf pain. Neurovascular unremarkable. Neuro: Awake, alert, oriented. Cranial nerves II through XII unremarkable. Cerebellum unremarkable. Motor and sensory unremarkable throughout. Exam nonfocal. Psychiatric: Mood and affect are appropriate. Normal thought process. Answering questions appropriately. Notes: *This patient was seen and evaluated during the 2019 SARS-CoV-2 novel coronavirus pandemic period. Community viral transmission is ongoing at time of this encounter and the emergency department is operating under pandemic response procedures. Her strep, influenza, COVID-19 screenings are negative. The child who has also registered into the emergency room with similar symptoms is positive for strep. She has been sharing eating utensils and drinks with the child, will treat with amoxicillin. I have talked with the patient about today's findings, in addition to providing specific details for plan of care. Reassessment at the time of disposition demonstrates that the patient is in no acute distress. The patient is stable for discharge, counseling was provided and we discussed in great detail signs and symptoms that would prompt them to return to the Emergency Department. Medication, follow up and supportive care measures were reviewed and discussed. Voices understanding and is agreeable to plan of care. Denies any further questions or concerns at this time. Diagnostics: Influenza/COVID-19, strep Therapeutics: None Prescription: Amoxicillin Impression: Pharyngitis Plan: 1. Take your medication as directed. Good handwashing and contact precautions as we discussed. 2. Warm Salt water gargles (rinse and spit) 3-4 x daily. Please get a new tooth brush after completion of your medication 3. Tylenol and or ibuprofen as needed for pain management. 4. Follow-up with your primary care provider in the next 1-2 days. Return to the ED as needed and as discussed. Definitive disposition and diagnosis as appropriate pending reevaluation and review of above. Throat Pain Score (Numeric/FACES): 2 - Related Data Allergies Allergy/AdvReac Type Severity Reaction Status Date / Time No Known Allergies Allergy Verified 03/06/20 14:27 Home Meds: Home Meds Amoxicillin 500 mg PO BID 10 Days #20 capsule 03/06/20 [Rx] Past Medical History - Past Health History Medical/Surgical History: Denies Medical/Surgical History HEENT History: Reports: None Cardiovascular History: Reports: None Respiratory History: Reports: None Gastrointestinal History: Reports: None Genitourinary History: Reports: None [employer] History: Reports: Musculoskeletal History: Reports: None Neurological History: Reports: None Psychiatric History: Reports: Anxiety, Depression Endocrine/Metabolic History: Reports: None Hematologic History: Reports: None Dermatologic History: Reports: None - Infectious Disease History Infectious Disease History: Reports: None - Past Surgical History Female Surgical History: Reports: Other (See Below) Other Female Surgeries/Procedures: cervix sx Social & Family History - Family History Family Medical History: No Pertinent Family History - Tobacco Use Tobacco Use Status *Q: Current Every Day Tobacco User Years of Tobacco use: 5 Packs/Tins Daily: 0.2 - Caffeine Use Caffeine Use: Reports: None - Recreational Drug Use Recreational Drug Use: Yes Recreational Drug Type: Reports: Marijuana/Hashish ED ROS GENERAL - Review of Systems Review Of Systems: Comprehensive ROS is negative, except as noted in HPI. ED EXAM, GENERAL - Physical Exam Exam: See Below (See diction) Course - Vital Signs Last Recorded V/S: Last Vital Signs Temp 97.9 F 03/06/20 14:27 Pulse 108 H 03/06/20 14:27 Resp 18 03/06/20 14:27 BP 127/94 H 03/06/20 14:27 Pulse Ox 97 03/06/20 14:27 - Orders/Labs/Meds Labs: Laboratory Tests 03/06/20 03/06/20 Range/Units 14:26 14:26 Influenza Type A RNA NEGATIVE (NEGATIVE) Influenza Type B RNA NEGATIVE (NEGATIVE) SARS-CoV-2 RNA (ALAN) NEGATIVE (NEGATIVE) Group A Strep (PCR) NOT DETECTED (NOT DETECT) Departure - Departure Time of Disposition: 15:49 Disposition: Home, Self-Care 01 Clinical Impression: Pharyngitis Qualifiers: Pharyngitis/tonsillitis etiology: unspecified etiology Qualified Code(s): J02.9 - Acute pharyngitis, unspecified - Discharge Information Prescriptions: Amoxicillin 500 mg PO BID 10 Days #20 capsule Instructions: Pharyngitis, [id number] Referrals: PCP,None [Primary Care Provider] - Forms: ED Department Discharge Additional Instructions: The following information is given to patients seen in the emergency department who are being discharged to home. This information is to outline your options for follow-up care. We provide all patients seen in our emergency department with a follow-up referral. The need for follow-up, as well as the timing and circumstances, are variable depending upon the specifics of your emergency department visit. If you don't have a primary care physician on staff, we will provide you with a referral. We always advise you to contact your personal physician following an emergency department visit to inform them of the circumstance of the visit and for follow-up with them and/or the need for any referrals to a consulting specialist. The emergency department will also refer you to a specialist when appropriate. This referral assures that you have the opportunity for follow-up care with a specialist. All of these measure are taken in an effort to provide you with optimal care, which includes your follow-up. Under all circumstances we always encourage you to contact your private physician who remains a resource for coordinating your care. When calling for follow-up care, please make the office aware that this follow-up is from your recent emergency room visit. If for any reason you are refused follow-up, please contact the [facility] Emergency Department at and asked to speak to the emergency department charge nurse. [facility] [address] [place] [address] [place] [address] Thank you for choosing the [facility] emergency department in [place] for your medical needs today. It was a pleasure caring for you. Today you were seen in the emergency department for sore throat. 1. Negative COVID-19 and influneza. Take your medication as directed. Good handwashing and contact precautions as we discussed. 2. Warm Salt water gargles (rinse and spit) 3-4 x daily. Please get a new tooth brush after completion of your medication 3. Tylenol and or ibuprofen as needed for pain management. 4. Follow-up with your primary care provider in the next 1-2 days. Return to the ED as needed and as discussed. Sepsis Event Note (ED) - Evaluation Sepsis Screening Result: No Definite Risk - Focused Exam Vital Signs: Vital Signs Temp Pulse Resp BP Pulse Ox 03/06/20 14:27 97.9 F 108 H 18 127/94 H 97
[2020-03-06 15:19] LABS: CORONAVIRUS COVID-19 NAA NEGATIVE (NEGATIVE); INFLUENZA A NAA NEGATIVE (NEGATIVE); INFLUENZA B NAA NEGATIVE (NEGATIVE)
== END 2020-03-06 16:23 | disposition home or self-care (01) ==
LOC: MW.ED 13:57
DX: J02.9 Acute pharyngitis, unspecified (principal); Z72.0 Tobacco use; Z20.822 Contact with and (suspected) exposure to COVID-19
CPT/HCPCS: 0240U; 87651; 99283; 99282

== ENCOUNTER 2020-03-19 16:55 | Emergency (ER) | payer MEDICAID ==
--- NOTE | 2020-03-19 17:35 | EDM.PDOC ---
ED HPI GENERAL MEDICAL PROBLEM - General Chief Complaint: Back Pain or Injury Stated Complaint: LOWER BACK PAIN Time Seen by Provider: 03/19/20 17:25 Source of Information: Reports: Patient History Limitations: Reports: No Limitations - History of Present Illness INITIAL COMMENTS - FREE TEXT/NARRATIVE: 24-year-old female G3, P2, gestational age 7 to 8 weeks presents with low back pain that started last night, pain is described as pressure sensation, nonradiating, constant, mild, no alleviating or exacerbating factors. Patient denies fever, vaginal bleeding, leakage of fluid, dysuria, chills, headache, chest pain, shortness of breath, abdominal pain, focal numbness or weakness. ROS: A 10-point review of systems, other than pertinent positives and negatives as stated per HPI, is otherwise negative Past medical history: No additional pertinent history Past Surgical history: No additional pertinent history Social history: No additional pertinent history Family history: No additional pertinent history PHYSICAL EXAM General: AOx4, GCS = 15, BMI 34.8 HEENT: dry mucous membrane Neck: supple, no meningismus, no Kernig or Brudzinski Cardiac: S1S2 RRR Respiratory: CTAB, no crackles or rales, no wheezing Abdomen: Soft, nontender, no rebound or guarding, nondistended, no pulsatile mass. Back: nontender to bilateral CVAT Musculoskeletal: NVI distally, no deformity Neuro: No focal deficits, CN 2 - 12 WNL. Bilateral Lower Back Pain Score (Numeric/FACES): 6 - Related Data Allergies Allergy/AdvReac Type Severity Reaction Status Date / Time No Known Allergies Allergy Verified 03/19/20 17:12 Home Meds: Home Meds cephALEXin [Keflex] 500 mg PO Q8H #30 cap 03/19/20 [Rx] Past Medical History - Past Health History Medical/Surgical History: Denies Medical/Surgical History HEENT History: Reports: None Cardiovascular History: Reports: None Respiratory History: Reports: None Gastrointestinal History: Reports: None Genitourinary History: Reports: None HOSPICE LIAISON History: Reports: Musculoskeletal History: Reports: None Neurological History: Reports: None Psychiatric History: Reports: Anxiety, Depression Endocrine/Metabolic History: Reports: None Hematologic History: Reports: None Dermatologic History: Reports: None - Infectious Disease History Infectious Disease History: Reports: None - Past Surgical History Female Surgical History: Reports: Other (See Below) Other Female Surgeries/Procedures: cervix sx Social & Family History - Family History Family Medical History: No Pertinent Family History - Tobacco Use Tobacco Use Status *Q: Former Tobacco User Used Tobacco, but Quit: Yes Month/Year Tobacco Last Used: 04/07 - Caffeine Use Caffeine Use: Reports: None - Recreational Drug Use Recreational Drug Use: No ED ROS GENERAL - Review of Systems Review Of Systems: See Below (see dictation) ED EXAM, GENERAL - Physical Exam Exam: See Below (see dictation) Course - Vital Signs Last Recorded V/S: Last Vital Signs Temp 98 F 03/19/20 17:12 Pulse 104 H 03/19/20 17:12 Resp 20 03/19/20 17:12 BP 140/87 03/19/20 17:12 Pulse Ox 98 03/19/20 17:12 - Orders/Labs/Meds Orders: Active Orders 24 hr Category Date Time Status CULTURE URINE [RM] Stat Lab 03/19/20 17:35 Received Labs: Laboratory Tests 03/19/20 03/19/20 03/19/20 Range/Units 17:35 17:42 17:42 WBC 9.41 (4.0-11.0) K/uL RBC 4.59 (4.30-5.90) M/uL Hgb 14.1 (12.0-16.0) g/dL Hct 43.0 (36.0-46.0) % MCV 93.7 (80.0-98.0) fL MCH 30.7 (27.0-32.0) pg MCHC 32.8 (31.0-37.0) g/dL RDW Std Deviation 43.2 (28.0-62.0) fl RDW Coeff of Brunilda 13 (11.0-15.0) % Plt Count 186 (150-400) K/uL MPV 11.90 (7.40-12.00) fL Neut % (Auto) 75.9 (48.0-80.0) % Lymph % (Auto) 17.2 (16.0-40.0) % [place] % (Auto) 5.6 (0.0-15.0) % Eos % (Auto) 1.1 (0.0-7.0) % Baso % (Auto) 0.2 (0.0-1.5) % Neut # (Auto) 7.1 H (1.4-5.7) K/uL Lymph # (Auto) 1.6 (0.6-2.4) K/uL [place] # (Auto) 0.5 (0.0-0.8) K/uL Eos # (Auto) 0.1 (0.0-0.7) K/uL Baso # (Auto) 0.0 (0.0-0.1) K/uL Nucleated RBC % 0.0 /100WBC Nucleated RBCs # 0 K/uL Sodium 138 (136-145) mmol/L Potassium 4.2 (3.5-5.1) mmol/L Chloride 102 (98-107) mmol/L Carbon Dioxide 25.9 (21.0-32.0) mmol/L BUN 9 (7.0-18.0) mg/dL Creatinine 0.7 (0.6-1.0) mg/dL Est Cr Clr Drug Dosing 99.70 mL/min Estimated GFR (MDRD) > 60.0 ml/min Glucose 89 (74-106) mg/dL Calcium 9.3 (8.5-10.1) mg/dL Total Bilirubin 0.4 (0.2-1.0) mg/dL AST 13 L (15-37) IU/L ALT 20 (14-63) IU/L Alkaline Phosphatase 95 (46-116) U/L Total Protein 7.6 (6.4-8.2) g/dL Albumin 3.4 (3.4-5.0) g/dL Globulin 4.2 H (2.6-4.0) g/dL Albumin/Globulin Ratio 0.8 L (0.9-1.6) HCG, Quant 35905.0 mIU/mL Urine Color YELLOW Urine Appearance HAZY Urine pH 7.0 (5.0-8.0) Ur Specific [place] 1.025 (1.001-1.035) Urine Protein NEGATIVE (NEGATIVE) mg/dL Urine Glucose (UA) NEGATIVE (NEGATIVE) mg/dL Urine Ketones NEGATIVE (NEGATIVE) mg/dL Urine Occult Blood NEGATIVE (NEGATIVE) Urine Nitrite NEGATIVE (NEGATIVE) Urine Bilirubin NEGATIVE (NEGATIVE) Urine Urobilinogen 0.2 (<2.0) EU/dL Ur Leukocyte Esterase SMALL H (NEGATIVE) Urine RBC 0-2 (0-2/HPF) Urine WBC 3-6 (0-5/HPF) Ur Epithelial Cells FEW (NONE-FEW) Urine Bacteria 3+ H (NEGATIVE) Blood Type 03/19/20 Range/Units 17:42 WBC (4.0-11.0) K/uL RBC (4.30-5.90) M/uL Hgb (12.0-16.0) g/dL Hct (36.0-46.0) % MCV (80.0-98.0) fL MCH (27.0-32.0) pg MCHC (31.0-37.0) g/dL RDW Std Deviation (28.0-62.0) fl RDW Coeff of Brunilda (11.0-15.0) % Plt Count (150-400) K/uL MPV (7.40-12.00) fL Neut % (Auto) (48.0-80.0) % Lymph % (Auto) (16.0-40.0) % [place] % (Auto) (0.0-15.0) % Eos % (Auto) (0.0-7.0) % Baso % (Auto) (0.0-1.5) % Neut # (Auto) (1.4-5.7) K/uL Lymph # (Auto) (0.6-2.4) K/uL [place] # (Auto) (0.0-0.8) K/uL Eos # (Auto) (0.0-0.7) K/uL Baso # (Auto) (0.0-0.1) K/uL Nucleated RBC % /100WBC Nucleated RBCs # K/uL Sodium (136-145) mmol/L Potassium (3.5-5.1) mmol/L Chloride (98-107) mmol/L Carbon Dioxide (21.0-32.0) mmol/L BUN (7.0-18.0) mg/dL Creatinine (0.6-1.0) mg/dL Est Cr Clr Drug Dosing mL/min Estimated GFR (MDRD) ml/min Glucose (74-106) mg/dL Calcium (8.5-10.1) mg/dL Total Bilirubin (0.2-1.0) mg/dL AST (15-37) IU/L ALT (14-63) IU/L Alkaline Phosphatase (46-116) U/L Total Protein (6.4-8.2) g/dL Albumin (3.4-5.0) g/dL Globulin (2.6-4.0) g/dL Albumin/Globulin Ratio (0.9-1.6) HCG, Quant mIU/mL Urine Color Urine Appearance Urine pH (5.0-8.0) Ur Specific [place] (1.001-1.035) Urine Protein (NEGATIVE) mg/dL Urine Glucose (UA) (NEGATIVE) mg/dL Urine Ketones (NEGATIVE) mg/dL Urine Occult Blood (NEGATIVE) Urine Nitrite (NEGATIVE) Urine Bilirubin (NEGATIVE) Urine Urobilinogen (<2.0) EU/dL Ur Leukocyte Esterase (NEGATIVE) Urine RBC (0-2/HPF) Urine WBC (0-5/HPF) Ur Epithelial Cells (NONE-FEW) Urine Bacteria (NEGATIVE) Blood Type O POSITIVE - Re-Assessments/Exams Free Text/Narrative Re-Assessment/Exam: 03/19/201924 After ultrasound in the ER, she is currently stable for discharge. I performed a repeat exam and did not appreciate new abnormal findings. Patient exhibits normal vital signs and has a normal gait on road test. I advised the patient to return to the ER for reevaluation if symptoms worsened, including fever, w orsening pain, or any other worrisome symptoms. I instructed the patient to follow up with OB next week. MEDICAL DECISION MAKING: I reviewed the patients past medical records, lab and radiographic findings. I discussed the case with the patient. My differential diagnosis included: Low back strain, UTI, ectopic , threatened miscarriage. UA demonstrated UTI, ultrasound did not demonstrate ectopic . Departure - Departure Time of Disposition: 19:27 Disposition: Home, Self-Care 01 Condition: Good Clinical Impression: UTI (urinary tract infection) Qualifiers: Urinary tract infection type: site unspecified Hematuria presence: without hematuria Qualified Code(s): N39.0 - Urinary tract infection, site not specified - Discharge Information *PRESCRIPTION DRUG MONITORING PROGRAM REVIEWED*: Not Applicable *COPY OF PRESCRIPTION DRUG MONITORING REPORT IN PATIENT TREY: Not Applicable Prescriptions: cephALEXin [Keflex] 500 mg PO Q8H #30 cap Instructions: and Urinary Tract Infection Referrals: PCP,None [Primary Care Provider] - Forms: ED Department Discharge Additional Instructions: The need for follow-up, as well as the timing and circumstances, are variable depending upon the specifics of your emergency department visit. If you don't have a primary care physician on staff, we will provide you with a referral. We always advise you to contact your personal physician following an emergency department visit to inform them of the circumstance of the visit and for follow-up with them and/or the need for any referrals to a consulting specialist. The emergency department will also refer you to a specialist when appropriate. This referral assures that you have the opportunity for follow-up care with a specialist. All of these measure are taken in an effort to provide you with optimal care, which includes your follow-up. Under all circumstances we always encourage you to contact your private physician who remains a resource for coordinating your care. When calling for follow-up care, please make the office aware that this follow-up is from your recent emergency room visit. If for any reason you are refused follow-up, please contact the [facility] Emergency Department at and asked to speak to the emergency department charge nurse. If you do not have a primary care doctor, please follow up with the clinics below within 3-5 days. HOSPICE LIAISON clinics [facility] [address] [place] [id number] [facility] [address] [place] [id number] Sepsis Event Note (ED) - Evaluation Sepsis Screening Result: No Definite Risk - Focused Exam Vital Signs: Vital Signs Temp Pulse Resp BP Pulse Ox 03/19/20 17:12 98 F 104 H 20 140/87 98 - My Orders Last 24 Hours: My Active Orders 03/19/20 17:35 CULTURE URINE [RM] Stat - Assessment/Plan Last 24 Hours: My Active Orders 03/19/20 17:35 CULTURE URINE [RM] Stat
[2020-03-19 18:45] LABS: BLOOD UREA NITROGEN,BUN 9 mg/dL (7.0-18.0); CARBON DIOXIDE,CO2 25.9 mmol/L (21.0-32.0); CHLORIDE,CL 102 mmol/L (98-107); GLUCOSE RANDOM 89 mg/dL (74-106); POTASSIUM,K 4.2 mmol/L (3.5-5.1); SODIUM,NA 138 mmol/L (136-145)
--- NOTE | 2020-03-19 19:03 | US ---
INDICATION: Cramping in early . Gestational age is 6 weeks 6 days by LMP. TECHNIQUE: Ultrasound OB pelvis transvaginal. Real-time burrell-scale imaging of the pelvis was performed. COMPARISON: None FINDINGS: Sonographic imaging demonstrates a single living intrauterine gestation. The embryo demonstrates a regular cardiac rate measuring 108 beats per minute. The embryo`s crown rump length measurement of 3.5 mm corresponds to a gestational age of 6 weeks 1 day with a sonographic due date of November 11, 2020. There is a focus of heterogeneous echogenicity adjacent to the yolk sac measuring 2.0 x 1.4 cm. There is a normal appearing yolk sac. There are no gross abnormalities noted within the embryo at this early state of development. The placenta has not yet developed. The gestational sac has a normal appearance. The amount of fluid within the sac appears appropriate for gestational age. The left ovary is normal in appearance. The right ovary is not clearly seen. There are no suspicious fluid collections noted in the cul-de-sac. IMPRESSION: Single viable intrauterine . Gestational age calculated at 6 weeks 1 day. Likely small perigestational hemorrhage adjacent to the yolk sac. The right ovary is not clearly seen. Normal left ovary. Dictated by Sita Baeza MD @ Mar 19 2020 6:55PM Signed by Dr. Sita Baeza @ Mar 19 2020 7:01PM
== END 2020-03-19 19:35 | disposition home or self-care (01) ==
LOC: MW.ED 16:55
DX: O23.41 Unspecified infection of urinary tract in pregnancy, first trimester (principal); Z87.891 Personal history of nicotine dependence
CPT/HCPCS: 36415; 76801; 76801-26; 80053; 81001; 84702; 85025; 86900; 86901; 87086; 87088; 87186; 99283; 99284-25

== ENCOUNTER 2020-11-14 21:30 | Inpatient (IN) | payer MEDICAID ==
[2020-11-14] MEDS ORDERED: Lidocaine 1% 50 ML MDV INJECT PRN (23:39)
[2020-11-14] MEDS ORDERED: Nalbuphine 10 MG/1 ML Vial IVPUSH PRN (23:39)
[2020-11-14] MEDS ORDERED: Water For Irrigation,Sterile 1,000 ML Container IRR PRN (23:39)
[2020-11-14] MEDS ORDERED: Misoprostol 25 MCG (1/4 of 100 MCG) Tab VAG PRN ×2 (23:39)
[2020-11-14] MEDS ORDERED: Butorphanol 1 MG/ML SDV IVPUSH PRN (23:39)
[2020-11-14] MEDS ORDERED: Carboprost Tromethamine 250 MCG/1 ML Amp IM PRN (23:39)
[2020-11-14] MEDS ORDERED: Tranexamic Acid 1,000 MG in Sodium Chloride 0.9% 100 ML IV PRN (23:39)
[2020-11-14] MEDS ORDERED: Sodium Chloride 0.9% 2.5 ML Syringe FLUSH PRN (23:39)
[2020-11-14] MEDS ORDERED: Misoprostol 200 MCG Tab PO PRN (23:39)
[2020-11-14] MEDS ORDERED: Sodium Chloride 0.9% 10 ML SDV IV PRN (23:39)
[2020-11-14] MEDS ORDERED: Sodium Chloride 0.9% 10 ML Syringe FLUSH PRN (23:39)
[2020-11-14] MEDS ORDERED: Terbutaline 1 MG/ML SDV SUBCUT PRN (23:39)
[2020-11-14] MEDS ORDERED: Methylergonovine 0.2 MG/1 ML Amp IM PRN (23:39)
[2020-11-14] MEDS ORDERED: Ondansetron 4 MG/2 ML SDV IVPUSH PRN (23:39)
[2020-11-14] MEDS ORDERED: Oxytocin/0.9 % Sodium Chloride 30 UNIT/500 ML BAG IV SCH ×2 (23:45)
[2020-11-14] MEDS ORDERED: Misoprostol 25 MCG (1/4 of 100 MCG) Tab PO ONE (23:45)
[2020-11-15] MEDS: Lactated Ringers 1,000 ML IV SCH ×3 (02:50→08:28)
--- NOTE | 2020-11-15 03:30 | PCM.LDHP ---
L&D History of Present Illness - General Date of Service: 11/15/20 Admit Problem/Dx: Patient Status Order with Admit Dx/Problem 11/14/20 22:04 Patient Status [ADT] Routine 11/14/20 23:39 Patient Status [ADT] Routine Admission Diagnosis/Problem Admission Diagnosis/Problem 11/15/20 03:26 Polly is a 25 yo at 41+2 weeks (TYRESE(LMP) 11/06/2020) that presents today for post-dates IOL with C/O painful uterine contractions. Reports + FM. Denies LOF and vaginal bleeding. Hx: syphilis this treated with 3 doses of penicillin (last dose administered 05/29/2020); obesity; PPH d/t lucrecia ined placenta 2014). O pos, RI, GBS neg. RPR re-collected, will result in 1-2 days. Patient reports she desires to continue with IOL with cervical ripening as planned, consents signed 11/13/[address] Ray. Unable to find copy from office, re-obtained copy of consent today at bedside. Patient has not other questions or concerns at this time, desires to continue with IOL. 11/15/20 03:30 11/15/20 03:35 Source of Information: Patient History Limitations: Reports: No Limitations - History of Present Illness Pain Score: 8 Improves with: Reports: None Worsens with: Reports: None Associated Symptoms: Reports: N - Related Data Allergies/Adverse Reactions: Allergies Allergy/AdvReac Type Severity Reaction Status Date / Time No Known Allergies Allergy Verified 03/19/20 17:12 Home Medications: Home Meds cephALEXin [Keflex] 500 mg PO Q8H #30 cap 03/19/20 [Rx] Past Medical History - Past Health History Medical/Surgical History: Denies Medical/Surgical History HEENT History: Reports: None Cardiovascular History: Reports: None Respiratory History: Reports: None Gastrointestinal History: Reports: None Genitourinary History: Reports: None [employer]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: Reports: Musculoskeletal History: Reports: None Neurological History: Reports: None Psychiatric History: Reports: Anxiety, Depression Endocrine/Metabolic History: Reports: None Hematologic History: Reports: None Dermatologic History: Reports: None - Infectious Disease History Infectious Disease History: Reports: None - Past Surgical History Female Surgical History: Reports: Other (See Below) Other Female Surgeries/Procedures: cervix sx Social & Family History - Family History Family Medical History: No Pertinent Family History - Tobacco Use Tobacco Use Status *Q: Former Tobacco User Used Tobacco, but Quit: Yes Month/Year Tobacco Last Used: 02/2020 - Caffeine Use Caffeine Use: Reports: Soda - Recreational Drug Use Recreational Drug Use: No H&P Review of Systems - Review of Systems: Review Of Systems: Comprehensive ROS is negative, except as noted in HPI. General: Reports: No Symptoms HEENT: Reports: No Symptoms Pulmonary: Reports: No Symptoms Cardiovascular: Reports: No Symptoms Gastrointestinal: Reports: No Symptoms Genitourinary: Reports: No Symptoms Musculoskeletal: Reports: No Symptoms Skin: Reports: No Symptoms Psychiatric: Reports: No Symptoms Neurological: Reports: No Symptoms Hematologic/Lymphatic: Reports: No Symptoms Immunologic: Reports: No Symptoms L&D Exam - Exam Exam: See Below - Vital Signs Vital Signs: VSS, afebrile. See flowsheet. Weight: 230 lb - OB Specific Fundal Height In cm: 41 Contraction Duration (sec): 60-80 Contraction Frequency (min): 2-4 Contraction Intensity: Moderate Movement: Active Heart Tones: Present Heart Tones per Min: 130 Heart Rate (FHR) Variability: Moderate (6-25 bpm) Presentation: Vertex (via SVE) - Kothari Score Kothari Score Cervix Position: Posterior Kothari Score Consistency: Soft Kothari Score Effacement: 51-70% Kothari Score Dilation: 3-4 cm Kothari Score 's Station: -2 Kothari Score Total: 7 - Exam General: Alert, Oriented, Cooperative, Mild Distress HEENT: Conjunctiva Clear, Hearing Intact, Mucosa Moist & [place], PERRLA Neck: Supple, Trachea Midline Lungs: Clear to Auscultation, Normal Respiratory Effort Cardiovascular: Regular Rate, Regular Rhythm GI/Abdominal Exam: Normal Bowel Sounds, Soft, Non-Tender, No Organomegaly, No Distention Rectal Exam: Deferred Genitourinary: Normal external exam, Normal bimanual exam, Enlarged uterus Back Exam: Normal Inspection, Full Range of Motion Extremities: Normal Inspection, Normal Range of Motion, Non-Tender, No Pedal Edema, Normal Capillary Refill Skin: Warm, Dry, Intact Neurological: Cranial Nerves Intact, Reflexes Equal Bilateral Psychiatric: Alert, Normal Affect, Normal Mood - Patient Data Lab Results Last 24 hrs: Laboratory Results - last 24 hr 11/14/20 11/14/20 11/14/20 Range/Units 23:11 23:26 23:26 WBC 13.63 H (4.0-11.0) K/uL RBC 4.01 L (4.30-5.90) M/uL Hgb 11.3 L (12.0-16.0) g/dL Hct 34.4 L (36.0-46.0) % MCV 85.8 (80.0-98.0) fL MCH 28.2 (27.0-32.0) pg MCHC 32.8 (31.0-37.0) g/dL RDW Std Deviation 43.1 (28.0-62.0) fl RDW Coeff of Brunilda 14 (11.0-15.0) % Plt Count 172 (150-400) K/uL MPV 12.40 H (7.40-12.00) fL Nucleated RBC % 0.0 /100WBC Nucleated RBCs # 0 K/uL SARS-CoV-2 RNA (ALAN) NEGATIVE (NEGATIVE) Blood Type O POSITIVE Antibody Screen NEGATIVE Result Diagrams: 11/14/20 23:26 - Problem List (1) Encounter for planned induction of labor SNOMED Code(s): 503056163 ICD Code: Z34.90 - ENCNTR FOR SUPRVSN OF NORMAL , UNSP, UNSP TRIMESTER Status: Acute Priority: High Current Visit: Yes (2) Post-dates SNOMED Code(s): 06391106 ICD Code: O48.0 - POST-TERM Status: Acute Priority: High Current Visit: Yes (3) 41 weeks gestation of SNOMED Code(s): 26522484 ICD Code: Z3A.41 - 41 WEEKS GESTATION OF Status: Acute Priority: High Current Visit: Yes Problem List Initiated/Reviewed/Updated: Yes Orders Last 24hrs: Active Orders 24 hr Category Date Time Status Patient Status [ADT] Routine ADT 11/14/20 22:04 Active Patient Status [ADT] Routine ADT 11/14/20 23:39 Active Bedrest Bathroom Privileges [RC] ASDIRECTED Care 11/14/20 23:39 Active Communication Order [RC] ASDIRECTED Care 11/14/20 23:39 Active Communication Order [RC] ASDIRECTED Care 11/14/20 23:39 Active Communication Order [RC] ASDIRECTED Care 11/14/20 23:39 Active Heart Tones [RC] CONTINUOUS Care 11/14/20 23:39 Active Non Stress Test [RC] PER UNIT ROUTINE Care 11/14/20 22:04 Active May Shower [RC] ASDIRECTED Care 11/14/20 23:39 Active Notify Provider [RC] PRN Care 11/14/20 23:39 Active Notify Provider [RC] PRN Care 11/14/20 23:39 Active Notify Provider [RC] PRN Care 11/14/20 23:39 Active Notify Provider [RC] STAT Care 11/14/20 23:39 Active Oxygen Therapy [RC] ASDIRECTED Care 11/14/20 23:39 Active Up ad Meli [RC] ASDIRECTED Care 11/14/20 22:04 Active Vaginal Exam [RC] Click to Edit Care 11/14/20 22:04 Active Vaginal Exam [RC] PRN Care 11/14/20 23:39 Active Vital Signs [RC] PER UNIT ROUTINE Care 11/14/20 22:04 Active RPR (SYPHILIS SERO) W/ RFLX [REF] Routine Lab 11/14/20 23:26 Received Butorphanol [Stadol] Med 11/14/20 23:39 Active 1 mg IVPUSH Q1H PRN Carboprost Tromethamine [Hemabate DS] Med 11/14/20 23:39 Active 250 mcg IM ASDIRECTED PRN Lactated Ringers [Ringers, Lactated] 1,000 ml Med 11/14/20 23:45 Active IV ASDIRECTED Lidocaine 1% [Xylocaine 1%] Med 11/14/20 23:39 Active 50 ml INJECT ONETIME PRN Methylergonovine [Methergine] Med 11/14/20 23:39 Active 0.2 mg IM ASDIRECTED PRN Nalbuphine [Nubain] Med 11/14/20 23:39 Active 10 mg IVPUSH Q1H PRN Ondansetron [Zofran] Med 11/14/20 23:39 Active 4 mg IVPUSH Q4H PRN Oxytocin/0.9 % Sodium Chloride [Oxytocin 30 Unit in NS Med 11/14/20 23:45 Active 0.9% 500 ML Premix] 30 unit in 500 ml IV TITRATE Oxytocin/0.9 % Sodium Chloride [Oxytocin 30 Unit in NS Med 11/14/20 23:45 Active 0.9% 500 ML Premix] 30 unit in 500 ml IV TITRATE Sodium Chloride 0.9% [Normal Saline] Med 11/14/20 23:39 Active 10 ml IV ASDIRECTED PRN Sodium Chloride 0.9% [Saline Flush] Med 11/14/20 23:39 Active 10 ml FLUSH ASDIRECTED PRN Sodium Chloride 0.9% [Saline Flush] Med 11/14/20 23:39 Active 2.5 ml FLUSH ASDIRECTED PRN Terbutaline [Brethine] Med 11/14/20 23:39 Active 0.25 mg SUBCUT ASDIRECTED PRN Tranexamic Acid [Cyklokapron] 1,000 mg Med 11/14/20 23:39 Active Sodium Chloride 0.9% [Normal Saline] 100 ml IV ONETIME Water For Irrigation,Sterile [Sterile Water for Med 11/14/20 23:39 Active Irrigation] 1,000 ml IRR ASDIRECTED PRN miSOPROStoL [Cytotec] Med 11/14/20 23:39 Active 200 mcg PO ONETIME PRN miSOPROStoL [Cytotec] Med 11/14/20 23:39 Active 25 mcg VAG ONETIME PRN miSOPROStoL [Cytotec] Med 11/14/20 23:39 Active 25 mcg VAG Q4H PRN Scalp Electrode [WOMSER] Per Unit Routine Oth 11/14/20 23:39 Ordered Medication Administration Instruction [OM.PC] Q3H Oth 11/14/20 23:45 Ordered Peripheral IV Insertion Adult [OM.PC] Routine Oth 11/14/20 23:39 Ordered Resuscitation Status Routine Resus Stat 11/14/20 22:04 Ordered Medication Orders Butorphanol Tartrate (Butorphanol 1 Mg/Ml Sdv) 1 mg IVPUSH Q1H PRN PRN Reason: Pain (severe 7-10) Carboprost Tromethamine (Carboprost Tromethamine 250 Mcg/1 Ml Amp) 250 mcg IM ASDIRECTED PRN PRN Reason: Post Hemorrhage Lactated Ringer's (Ringers, Lactated) 1,000 mls @ 150 mls/hr IV ASDIRECTED CRUZ Last Admin: 11/15/20 02:50 Dose: 500 mls/hr Documented by: SAMINAAC Oxytocin/Sodium Chloride (Oxytocin 30 Unit In Ns 0.9% 500 Ml Premix) 30 unit in 500 mls @ 999 mls/hr IV TITRATE [facility] Tranexamic Acid 1,000 mg/ (Sodium Chloride) 110 mls @ 660 mls/hr IV ONETIME PRN PRN Reason: Bleeding Oxytocin/Sodium Chloride (Oxytocin 30 Unit In Ns 0.9% 500 Ml Premix) 30 unit in 500 mls @ 2 mls/hr IV TITRATE [facility]; Protocol Lidocaine HCl (Lidocaine 1% 50 Ml Mdv) 50 ml INJECT ONETIME PRN PRN Reason: Laceration repair Methylergonovine Maleate (Methylergonovine 0.2 Mg/1 Ml Amp) 0.2 mg IM ASDIRECTED PRN PRN Reason: Post Hemorrhage Misoprostol (Misoprostol 200 Mcg Tab) 200 mcg PO ONETIME PRN PRN Reason: Post Hemorrhage Misoprostol (Misoprostol 25 Mcg (1/4 Of 100 Mcg) Tab) 25 mcg VAG ONETIME PRN PRN Reason: Cervical Ripening Last Admin: 11/15/20 00:24 Dose: 25 mcg Documented by: SAMINAAC Misoprostol (Misoprostol 25 Mcg (1/4 Of 100 Mcg) Tab) 25 mcg VAG Q4H PRN PRN Reason: Cervical Ripening Nalbuphine HCl (Nalbuphine 10 Mg/1 Ml Vial) 10 mg IVPUSH Q1H PRN PRN Reason: Pain (severe 7-10) Last Admin: 11/15/20 02:46 Dose: 10 mg Documented by: SAMINAAC Ondansetron HCl (Ondansetron 4 Mg/2 Ml Sdv) 4 mg IVPUSH Q4H PRN PRN Reason: Nausea/Vomiting Sodium Chloride (Sodium Chloride 0.9% 10 Ml Syringe) 10 ml FLUSH ASDIRECTED PRN PRN Reason: Keep Vein Open Sodium Chloride (Sodium Chloride 0.9% 2.5 Ml Syringe) 2.5 ml FLUSH ASDIRECTED PRN PRN Reason: Keep Vein Open Sodium Chloride (Sodium Chloride 0.9% 10 Ml Sdv) 10 ml IV ASDIRECTED PRN PRN Reason: IV Use Sterile Water (Water For Irrigation,Sterile 1,000 Ml Container) 1,000 ml IRR ASDIRECTED PRN PRN Reason: delivery Terbutaline Sulfate (Terbutaline 1 Mg/Ml Sdv) 0.25 mg SUBCUT ASDIRECTED PRN PRN Reason: Tacysystole Assessment/Plan Comment:: Admit for observation to L&D for post-dates IOL in anticipation of of vi able, post-dates . Cytotec Dose #1 administered 0024. Plan to re- evaluated for cervical change at ~0430. May ambulate as desired so long as NST is Cat I and VSS unless otherwise contraindicated. May eat regular diet until no longer indicated; diet to clear liquids with administration of epidural. May receive epidural at 5+ cm. See new orders. Dr. Ray notified and agreeable with POC.
[2020-11-15] MEDS ORDERED: Ropivacaine HCl/PF 200 ML ONE (03:46)
[2020-11-15] MEDS ORDERED: fentaNYL 100 MCG/2 ML SDV ONE (03:47)
--- NOTE | 2020-11-15 04:18 | PCM.PREANE ---
Preanesthetic Assessment - Anesthesia/Transfusion/Family Hx Anesthesia History: Prior Anesthesia Without Reaction Family History of Anesthesia Reaction: No Transfusion History: No Prior Transfusion(s) - Physical Assessment NPO Status Date: 11/14/20 NPO Status Time: 22:30 Height: 1.57 m Weight: 104.326 kg ASA Class: 2 - Lab Values: Laboratory Last Values WBC 13.63 K/uL (4.0-11.0) H 11/14/20 23:26 RBC 4.01 M/uL (4.30-5.90) L 11/14/20 23:26 Hgb 11.3 g/dL (12.0-16.0) L 11/14/20 23:26 Hct 34.4 % (36.0-46.0) L 11/14/20 23:26 MCV 85.8 fL (80.0-98.0) 11/14/20 23:26 MCH 28.2 pg (27.0-32.0) 11/14/20 23:26 MCHC 32.8 g/dL (31.0-37.0) 11/14/20 23:26 RDW Std Deviation 43.1 fl (28.0-62.0) 11/14/20 23:26 RDW Coeff of Brunilda 14 % (11.0-15.0) 11/14/20 23:26 Plt Count 172 K/uL (150-400) 11/14/20 23:26 MPV 12.40 fL (7.40-12.00) H 11/14/20 23:26 Nucleated RBC % 0.0 /100WBC 11/14/20 23:26 Nucleated RBCs # 0 K/uL 11/14/20 23:26 SARS-CoV-2 RNA (ALAN) NEGATIVE (NEGATIVE) 11/14/20 23:11 Blood Type O POSITIVE 11/14/20 23:26 Antibody Screen NEGATIVE 11/14/20 23:26 - Allergies Allergies/Adverse Reactions: Allergies Allergy/AdvReac Type Severity Reaction Status Date / Time No Known Allergies Allergy Verified 03/19/20 17:12 - Acknowledgements Anesthesia Type Planned: Epidural Pt an Appropriate Candidate for the Planned Anesthesia: Yes Alternatives and Risks of Anesthesia Discussed w Pt/Guardian: Yes Pt/Guardian Understands and Agrees with Anesthesia Plan: Yes PreAnesthesia Questionnaire - Past Health History Medical/Surgical History: Denies Medical/Surgical History HEENT History: Reports: None Cardiovascular History: Reports: None Respiratory History: Reports: None Gastrointestinal History: Reports: None Genitourinary History: Reports: None [employer] PU[employer]ER History: Reports: Musculoskeletal History: Reports: None Neurological History: Reports: None Psychiatric History: Reports: Anxiety, Depression Endocrine/Metabolic History: Reports: None Hematologic History: Reports: None Dermatologic History: Reports: None - Infectious Disease History Infectious Disease History: Reports: None - Past Surgical History Female Surgical History: Reports: Other (See Below) Other Female Surgeries/Procedures: cervix sx - SUBSTANCE USE Tobacco Use Status *Q: Former Tobacco User Tobacco Use Within Last Twelve Months: Cigarettes Recreational Drug Use History: No - HOME MEDS Home Medications: Home Meds cephALEXin [Keflex] 500 mg PO Q8H #30 cap 03/19/20 [Rx] - CURRENT (IN HOUSE) MEDS Current Meds: Current Medications Butorphanol Tartrate (Butorphanol 1 Mg/Ml Sdv) 1 mg IVPUSH Q1H PRN PRN Reason: Pain (severe 7-10) Carboprost Tromethamine (Carboprost Tromethamine 250 Mcg/1 Ml Amp) 250 mcg IM ASDIRECTED PRN PRN Reason: Post Hemorrhage Lactated Ringer's (Ringers, Lactated) 1,000 mls @ 150 mls/hr IV ASDIRECTED CRUZ Last Infusion: 11/15/20 03:57 Dose: 900 mls/hr Documented by: Oxytocin/Sodium Chloride (Oxytocin 30 Unit In Ns 0.9% 500 Ml Premix) 30 unit in 500 mls @ 999 mls/hr IV TITRATE CRUZ Tranexamic Acid 1,000 mg/ (Sodium Chloride) 110 mls @ 660 mls/hr IV ONETIME PRN PRN Reason: Bleeding Oxytocin/Sodium Chloride (Oxytocin 30 Unit In Ns 0.9% 500 Ml Premix) 30 unit in 500 mls @ 2 mls/hr IV TITRATE CRUZ; Protocol Lidocaine HCl (Lidocaine 1% 50 Ml Mdv) 50 ml INJECT ONETIME PRN PRN Reason: Laceration repair Methylergonovine Maleate (Methylergonovine 0.2 Mg/1 Ml Amp) 0.2 mg IM ASDIRECTED PRN PRN Reason: Post Hemorrhage Misoprostol (Misoprostol 200 Mcg Tab) 200 mcg PO ONETIME PRN PRN Reason: Post Hemorrhage Misoprostol (Misoprostol 25 Mcg (1/4 Of 100 Mcg) Tab) 25 mcg VAG ONETIME PRN PRN Reason: Cervical Ripening Last Admin: 11/15/20 00:24 Dose: 25 mcg Documented by: Misoprostol (Misoprostol 25 Mcg (1/4 Of 100 Mcg) Tab) 25 mcg VAG Q4H PRN PRN Reason: Cervical Ripening Nalbuphine HCl (Nalbuphine 10 Mg/1 Ml Vial) 10 mg IVPUSH Q1H PRN PRN Reason: Pain (severe 7-10) Last Admin: 11/15/20 02:46 Dose: 10 mg Documented by: Ondansetron HCl (Ondansetron 4 Mg/2 Ml Sdv) 4 mg IVPUSH Q4H PRN PRN Reason: Nausea/Vomiting Sodium Chloride (Sodium Chloride 0.9% 10 Ml Syringe) 10 ml FLUSH ASDIRECTED PRN PRN Reason: Keep Vein Open Sodium Chloride (Sodium Chloride 0.9% 2.5 Ml Syringe) 2.5 ml FLUSH ASDIRECTED PRN PRN Reason: Keep Vein Open Sodium Chloride (Sodium Chloride 0.9% 10 Ml Sdv) 10 ml IV ASDIRECTED PRN PRN Reason: IV Use Sterile Water (Water For Irrigation,Sterile 1,000 Ml Container) 1,000 ml IRR ASDIRECTED PRN PRN Reason: delivery Terbutaline Sulfate (Terbutaline 1 Mg/Ml Sdv) 0.25 mg SUBCUT ASDIRECTED PRN PRN Reason: Tacysystole Discontinued Medications Fentanyl (Fentanyl 100 Mcg/2 Ml Sdv) Confirm Administered Dose 200 mcg .ROUTE .STK-MED ONE Stop: 11/15/20 03:48 Ropivacaine (Naropin 0.2%) Confirm Administered Dose 200 mls @ as directed .ROUTE .STK-MED ONE Stop: 11/15/20 03:47 Misoprostol (Misoprostol 25 Mcg (1/4 Of 100 Mcg) Tab) 25 mcg PO ONETIME ONE Stop: 11/14/20 23:46 Last Admin: 11/15/20 00:23 Dose: 25 mcg Documented by:
--- NOTE | 2020-11-15 04:22 | PCM.PRNOTE ---
- Free Text/Narrative Note: Anes NOte Patient requests epidural for L&D. Sitting position. Level L3-L4 midline approach. Sterile technique. Chloraprep scrub to lumbar area. Epidural space easily achieved single attempt using CALDERON technique. CALDERON at 3 cm. Cath threaded 6 cm with ease. Cath secured at 11 cm at skin using sterile clear adhesive dressing. Test 0355 3cc 1.5% lido with epi negative. 0405 Load 10 cc 0.2% ropivicaine with 1 mc/cc fentanyl in slow divided doses. 0415 Pump started iwth 190 cc same solution. Rate is 8 cc hr with 6 cc q 20 min prn bolus. Yenifer well. Patient reports excellent analgesia. Time with patient [id number] Alonso Monzon MANUAL ARTS THERAPIST
[2020-11-15] MEDS ORDERED: Misoprostol 25 MCG (1/4 of 100 MCG) Tab PO SCH (05:00)
--- NOTE | 2020-11-15 06:03 | PCM.PRNOTE ---
- Free Text/Narrative Note: Anes NOte I was called to assess this patient. BP reported to be low 1 hour after epidural infusion was started. A 500 cc fluid bolus was given. BP was rechecked at BP noted to be 122/70 on left arm while patient was lying on left side. VS stable. No sympoms of hypotension. Time with patient [id number] Alonso Monzon CRNA
[2020-11-15] MEDS ORDERED: Acetaminophen 500 MG Tab PO PRN ×2 (08:59)
[2020-11-15] MEDS ORDERED: Benzocaine/Menthol 20%-0.5% Spray 78 GM Cannister TOP PRN (08:59)
[2020-11-15] MEDS ORDERED: oxyCODONE 5 MG Tab PO PRN (08:59)
[2020-11-15] MEDS ORDERED: Witch Hazel Medicated Pads 40/Jar TOP PRN (08:59)
[2020-11-15] MEDS ORDERED: Docusate Sodium 100 MG Cap PO PRN (08:59)
[2020-11-15] MEDS ORDERED: Bisacodyl 10 MG Supp RECTAL PRN (08:59)
[2020-11-15] MEDS ORDERED: Lanolin 100% Cream 7 GM Tube TOP PRN (08:59)
[2020-11-15] MEDS ORDERED: Ibuprofen 400 MG Tab PO PRN (08:59)
--- NOTE | 2020-11-15 09:04 | PCM.DEL ---
L & D Note - General Info Date of Service: 11/15/20 Mother's Due Date: 11/06/20 - Delivery Note Labor: Augmented by ARM Cervical Ripening Method: Misoprostil Delivery Outcome: Livebirth Delivery Method: Spontaneous Vaginal Delivery-Single Infant Delivery Mode: Spontaneous Presentation: Vertex (via SVE) Anesthesia Type: Epidural Amniotic Fluid Description: Clear Episiotomy Type: None Laceration: None Placenta: Manual Removal, Retained Cord: 3 Vessels Estimated Blood Loss: 1,300 Resuscitation Needed: No [place]ree: Stimulated, Warmed, [place] Used Score 1 min: 8 Score 5 min: 9 Post Delivery Events: Hemorrhage, Retained Placenta Second Stage Interventions: Reports: Pushing Involuntarily, Pushing, Pulls Own Legs Back Delivery Comments (Free Text/Narrative):: Polly is a 25 yo at 41+2 weeks (TYRESE(LMP) 11/06/2020) that presents today for post-dates IOL with C/O painful uterine contractions. Reports + FM. Denies LOF and vaginal bleeding. Hx: syphilis this treated with 3 doses of penicillin (last dose administered 05/29/2020); obesity; PPH d/t retained placenta 2014). O pos, RI, GBS neg. RPR re-collected, will result in 1-2 days. Adequate epidural analgesia. Cephalic presentation. head delivered INA spontaneously and with involuntary pushing, RN delivered. CNM arrived to bedside within 30 seconds of , placenta still in utero. NBF placed to maternal abdomen, warmed, dried, stimulated with spontaneous cries. Umbilical cord left intact for ~2 min, clamped x 2, cut by RN student. Pitocin bolus c ommenced, gentle cord traction applied for active third stage management. Increased blood flow noted without placenta release. 0.2 mg methergine and 1000 mcg cytotec ordered to bedside. Dr. Ray called to bedside in anticipation of PPH with or without retained placenta. Placenta still not birthed ~10 min S/P NBF. Perineum inspected intact, Lina, 3VC. Methergine ordered to be administered to right anterior thigh. 700 ml blood measured at that time. Vaginal bleeding slowed to slow to moderate trickle by 15 min , placenta still not released with intermittent maternal pushing and gentle cord traction. Cytotec administered rectally for active third stage management. Dr. Ray arrived to bedside and performed manual extraction of placenta with cord avulsion noted. Uterus firm to massage, U-1. Moderate to large vaginal bleeding continued for 2-3 minutes. TXA 1000 mg ordered IV once by Dr. Ray to manage bleeding. Vaginal bleeding then decreased to slow trickle noted. 2 grams ampicillin ordered for prophylaxis following manual placenta removal. EBL 1300 ml. APGARS 8/9. weight 7 lb 1 oz (3190 g). - General Info Date of Service: 11/15/20 Admission Dx/Problem (Free Text): Patient Status Order with Admit Dx/Problem 11/14/20 22:04 Patient Status [ADT] Routine 11/14/20 23:39 Patient Status [ADT] Routine Admission Diagnosis/Problem Admission Diagnosis/Problem 11/15/20 03:26 Polly is a 25 yo at 41+2 weeks (TYRSEE(LMP) 11/06/2020) that presents today for post-dates IOL with C/O painful uterine contractions. Reports + FM. Denies LOF and vaginal bleeding. Hx: syphilis this treated with 3 doses of penicillin (last dose administered 05/29/2020); obesity; PPH d/t retained placenta 2014). O pos, RI, GBS neg. RPR re-collected, will result in 1-2 days. Patient reports she desires to continue with IOL with cervical ripening as planned, consents signed 11/13/[address] Ray. Unable to find copy from office, re-obtained copy of consent today at bedside. Patient has not other questions or concerns at this time, desires to continue with IOL. 11/15/20 03:30 11/15/20 03:35 Functional Status: Reports: Pain Controlled, Tolerating Diet - Review of Systems General: Reports: No Symptoms HEENT: Reports: No Symptoms Pulmonary: Reports: No Symptoms Cardiovascular: Reports: No Symptoms Gastrointestinal: Reports: No Symptoms Genitourinary: Reports: No Symptoms Musculoskeletal: Reports: No Symptoms Skin: Reports: No Symptoms Neurological: Reports: No Symptoms Psychiatric: Reports: No Symptoms - Patient Data Vitals - Most Recent: VSS, afebrile. See flowsheet. Weight - Most Recent: 230 lb Lab Results Last 24 Hours: Laboratory Results - last 24 hr 11/14/20 11/14/20 11/14/20 Range/Units 23:11 23:26 23:26 WBC 13.63 H (4.0-11.0) K/uL RBC 4.01 L (4.30-5.90) M/uL Hgb 11.3 L (12.0-16.0) g/dL Hct 34.4 L (36.0-46.0) % MCV 85.8 (80.0-98.0) fL MCH 28.2 (27.0-32.0) pg MCHC 32.8 (31.0-37.0) g/dL RDW Std Deviation 43.1 (28.0-62.0) fl RDW Coeff of Brunilda 14 (11.0-15.0) % Plt Count 172 (150-400) K/uL MPV 12.40 H (7.40-12.00) fL Nucleated RBC % 0.0 /100WBC Nucleated RBCs # 0 K/uL SARS-CoV-2 RNA (ALAN) NEGATIVE (NEGATIVE) Blood Type O POSITIVE Antibody Screen NEGATIVE Med Orders - Current: Current Medications Discontinued Medications Butorphanol Tartrate (Butorphanol 1 Mg/Ml Sdv) 1 mg IVPUSH Q1H PRN PRN Reason: Pain (severe 7-10) Carboprost Tromethamine (Carboprost Tromethamine 250 Mcg/1 Ml Amp) 250 mcg IM ASDIRECTED PRN PRN Reason: Post Hemorrhage Fentanyl (Fentanyl 100 Mcg/2 Ml Sdv) Confirm Administered Dose 200 mcg .ROUTE .STK-MED ONE Stop: 11/15/20 03:48 Lactated Ringer's (Ringers, Lactated) 1,000 mls @ 150 mls/hr IV ASDIRECTED [facility] Last Admin: 11/15/20 08:28 Dose: 900 mls/hr Documented by: Oxytocin/Sodium Chloride (Oxytocin 30 Unit In Ns 0.9% 500 Ml Premix) 30 unit in 500 mls @ 999 mls/hr IV TITRATE [facility] Last Admin: 11/15/20 08:28 Dose: 745 mls/hr Documented by: Tranexamic Acid 1,000 mg/ (Sodium Chloride) 110 mls @ 660 mls/hr IV ONETIME PRN PRN Reason: Bleeding Last Admin: 11/15/20 08:16 Dose: 660 mls/hr Documented by: Oxytocin/Sodium Chloride (Oxytocin 30 Unit In Ns 0.9% 500 Ml Premix) 30 unit in 500 mls @ 2 mls/hr IV TITRATE [facility]; Protocol Ropivacaine (Naropin 0.2%) Confirm Administered Dose 200 mls @ as directed .ROUTE .STK-MED ONE Stop: 11/15/20 03:47 Lidocaine HCl (Lidocaine 1% 50 Ml Mdv) 50 ml INJECT ONETIME PRN PRN Reason: Laceration repair Methylergonovine Maleate (Methylergonovine 0.2 Mg/1 Ml Amp) 0.2 mg IM ASDIRECTED PRN PRN Reason: Post Hemorrhage Last Admin: 11/15/20 07:51 Dose: 0.2 mg Documented by: Misoprostol (Misoprostol 200 Mcg Tab) 200 mcg PO ONETIME PRN PRN Reason: Post Hemorrhage Last Admin: 11/15/20 08:29 Dose: 1,000 mcg Documented by: Misoprostol (Misoprostol 25 Mcg (1/4 Of 100 Mcg) Tab) 25 mcg VAG ONETIME PRN PRN Reason: Cervical Ripening Last Admin: 11/15/20 00:24 Dose: 25 mcg Documented by: Misoprostol (Misoprostol 25 Mcg (1/4 Of 100 Mcg) Tab) 25 mcg VAG Q4H PRN PRN Reason: Cervical Ripening Last Admin: 11/15/20 06:14 Dose: 25 mcg Documented by: Misoprostol (Misoprostol 25 Mcg (1/4 Of 100 Mcg) Tab) 25 mcg PO ONETIME ONE Stop: 11/14/20 23:46 Last Admin: 11/15/20 00:23 Dose: 25 mcg Documented by: Misoprostol (Misoprostol 25 Mcg (1/4 Of 100 Mcg) Tab) 25 mcg PO Q4H [facility] Last Admin: 11/15/20 06:13 Dose: 25 mcg Documented by: Nalbuphine HCl (Nalbuphine 10 Mg/1 Ml Vial) 10 mg IVPUSH Q1H PRN PRN Reason: Pain (severe 7-10) Last Admin: 11/15/20 02:46 Dose: 10 mg Documented by: Ondansetron HCl (Ondansetron 4 Mg/2 Ml Sdv) 4 mg IVPUSH Q4H PRN PRN Reason: Nausea/Vomiting Sodium Chloride (Sodium Chloride 0.9% 10 Ml Syringe) 10 ml FLUSH ASDIRECTED PRN PRN Reason: Keep Vein Open Sodium Chloride (Sodium Chloride 0.9% 2.5 Ml Syringe) 2.5 ml FLUSH ASDIRECTED PRN PRN Reason: Keep Vein Open Sodium Chloride (Sodium Chloride 0.9% 10 Ml Sdv) 10 ml IV ASDIRECTED PRN PRN Reason: IV Use Sterile Water (Water For Irrigation,Sterile 1,000 Ml Container) 1,000 ml IRR ASDIRECTED PRN PRN Reason: delivery Last Admin: 11/15/20 08:28 Dose: 1,000 ml Documented by: Terbutaline Sulfate (Terbutaline 1 Mg/Ml Sdv) 0.25 mg SUBCUT ASDIRECTED PRN PRN Reason: Tacysystole - Exam Urinary Catheter Total Time: 0Days 0Hours General: Alert, Oriented, Cooperative, No Acute Distress HEENT: Pupils Equal, Mucous Membr. Moist/[place] Neck: Supple Lungs: Clear to Auscultation, Normal Respiratory Effort Cardiovascular: Regular Rate, Regular Rhythm GI/Abdominal Exam: Normal Bowel Sounds, Soft, Non-Tender, No Organomegaly, No Distention (Female) Exam: Normal External Exam, Enlarged Uterus, Vaginal Bleeding Back Exam: Normal Inspection, Full Range of Motion Extremities: Normal Inspection, Normal Range of Motion, Non-Tender, No Pedal Edema, Normal Capillary Refill Skin: Warm, Dry, Intact Wound/Incisions: No Drainage Neurological: No New Focal Deficit Psy/Mental Status: Alert, Normal Affect, Normal Mood - Problem List & Annotations (1) (spontaneous vaginal delivery) SNOMED Code(s): 853506562 Code(s): O80 - ENCOUNTER FOR FULL-TERM UNCOMPLICATED DELIVERY Status: Acute Priority: High Current Visit: Yes (2) Retained placenta with hemorrhage SNOMED Code(s): 67724086 Code(s): O72.0 - THIRD-STAGE HEMORRHAGE Status: Acute Priority: High Current Visit: Yes (3) Lactating mother SNOMED Code(s): 024720434, 794318006 Code(s): Z39.1 - ENCOUNTER FOR CARE AND EXAMINATION OF LACTATING MOTHER Status: Acute Priority: High Current Visit: Yes - Problem List Review Problem List Initiated/Reviewed/Updated: Yes - My Orders Last 24 Hours: My Active Orders 11/15/20 08:59 Patient Status [ADT] Routine May Shower [RC] ASDIRECTED Up ad Meli [RC] ASDIRECTED Vital Signs [RC] PER UNIT ROUTINE Acetaminophen [Tylenol Extra Strength] 1,000 mg PO Q4H PRN Acetaminophen [Tylenol Extra Strength] 500 mg PO Q4H PRN Benzocaine/Menthol [Dermoplast Pain Relief 20%-0.5% [place]] 78 gm TOP ASDIRECTED PRN Docusate Sodium [Colace] 100 mg PO Q12H PRN Ibuprofen [Motrin] 400 mg PO Q4H PRN Ibuprofen [Motrin] 800 mg PO Q6H PRN Lanolin [Lansinoh HPA] See Dose Instructions TOP ASDIRECTED PRN bisacodyL [Dulcolax] 10 mg RECTAL ONETIME PRN oxyCODONE 5 mg PO Q2H PRN witch Matthew [Tucks] 1 pad TOP ASDIRECTED PRN Assess Lochia [WOMSER] Per Unit Routine Assess Uterine Involution [WOMSER] Per Unit Routine Peripheral IV Discontinue [OM.PC] Routine Resuscitation Status Routine 11/15/20 09:00 Ice Therapy [OM.PC] Per Unit Routine Perineal Care [OM.PC] Per Unit Routine Sitz Bath [OM.PC] Per Unit Routine 11/15/20 09:02 Cooling Warming Measures [RC] ASDIRECTED 11/15/20 Lunch Regular Diet [DIET] 11/16/20 05:00 CBC W/O DIFF,HEMOGRAM [HEME] Routine - Plan Plan:: Admit inpatient to unit S/P of term, viable NBF. RPR pending. Regular diet as tolerated. Bedrest for 4-6 hours with bedpan use. 1000 ml LR bolus now. Plan to D/C epidural now. 2 grams ampicillin ordered to be infused now for prophylaxis following manual placenta removal. If patient does not void within 6 hours S/P delivery, may I/&O and notify provider. support may be provided if desired or needed. H/H in 4 hours. CBC in am. See new orders. Dr. Ray notified and agreeable with POC.
[2020-11-15] MEDS ORDERED: Ampicillin 2 GM in Sodium Chloride 0.9% 100 ML IV ONE (09:45)
[2020-11-15] MEDS ORDERED: Penicillin G Benzathine 1,200,000 Units/2 ML Syringe IM ONE (10:46)
--- NOTE | 2020-11-15 10:53 | PCM48HPAN ---
Post Anesthesia Note - EVALUATION WITHIN 48HRS OF ANESTHETIC Vital Signs in Normal Range: Yes Patient Participated in Evaluation: Yes Respiratory Function Stable: Yes Airway Patent: Yes Cardiovascular Function Stable: Yes Hydration Status Stable: Yes Pain Control Satisfactory: Yes Nausea and Vomiting Control Satisfactory: Yes Mental Status Recovered: Yes
--- NOTE | 2020-11-15 10:53 | PCM.POSTAN ---
POST ANESTHESIA ASSESSMENT - MENTAL STATUS Mental Status: Alert, Oriented - RESPIRATORY Respiratory Status: Respiratory Rate WNL, Airway Patent, O2 Saturation Stable - CARDIOVASCULAR CV Status: Pulse Rate WNL, Blood Pressure Stable - GASTROINTESTINAL GI Status: No Symptoms - POST OP HYDRATION Hydration Status: Adequate & Stable
[2020-11-15] MEDS ORDERED: Misoprostol 200 MCG Tab ONE (12:00)
[2020-11-15] MEDS: Ibuprofen 800 MG Tab PO PRN (23:42)
--- NOTE | 2020-11-16 08:57 | PCM.DCSUM1 ---
Discharge Summary - Hospital Course Free Text/Narrative:: Discharge home. Follow up in the clinic in 6 weeks for routine visit; sooner, if needed. Diagnosis: Stroke: No Modified [place] Scale: No Symptoms at All Modified [place] Scale Score: 0 - Discharge Data Discharge Date: 11/16/20 Discharge Disposition: Home, Self-Care 01 Condition: Good - Referral to Home Health Primary Care Physician: PCP None - Discharge Diagnosis/Problem(s) (1) Retained placenta with hemorrhage SNOMED Code(s): 09208549 ICD Code: O72.0 - THIRD-STAGE HEMORRHAGE Status: Acute Priority: High Current Visit: Yes (2) (spontaneous vaginal delivery) SNOMED Code(s): 276479483 ICD Code: O80 - ENCOUNTER FOR FULL-TERM UNCOMPLICATED DELIVERY Status: Acute Priority: High Current Visit: Yes - Patient Instructions Diet: Regular Diet as Tolerated, Drink 8-10+ Glasses/Day Activity: As Tolerated, No Strenuous Activities, Rest and Relax Today Driving: Do Not Drive Showering/Bathing: May Shower - Discharge Plan *PRESCRIPTION DRUG MONITORING PROGRAM REVIEWED*: Not Applicable *COPY OF PRESCRIPTION DRUG MONITORING REPORT IN PATIENT TREY: Not Applicable Prescriptions/Med Rec: Ferrous Sulfate 325 mg PO DAILY #60 tablet Ibuprofen [Motrin] 800 mg PO Q6H PRN #90 tablet PRN Reason: Cramping Home Medications: Home Meds cephALEXin [Keflex] 500 mg PO Q8H #30 cap 03/19/20 [Rx] Ferrous Sulfate 325 mg PO DAILY #60 tablet 11/16/20 [Rx] Ibuprofen [Motrin] 800 mg PO Q6H PRN #90 tablet 11/16/20 [Rx] Referrals: Macie Ayala, ZULMA, [employer] [Mid-] - 12/27/20 9:30 am (6-week check.) - Discharge Summary/Plan Comment DC Time >30 min.: Yes Total # of Minutes for Discharge Time: n/a - General Info Date of Service: 11/16/20 Admission Dx/Problem (Free Text: Patient Status Order with Admit Dx/Problem 11/14/20 22:04 Patient Status [ADT] Routine 11/14/20 23:39 Patient Status [ADT] Routine Admission Diagnosis/Problem Admission Diagnosis/Problem 11/15/20 03:26 Polly is a 25 yo at 41+2 weeks (TYRESE(LMP) 11/06/2020) that presents today for post-dates IOL with C/O painful uterine contractions. Reports + FM. Denies LOF and vaginal bleeding. Hx: syphilis this treated with 3 doses of penicillin (last dose administered 05/29/2020); obesity; PPH d/t retained placenta 2014). O pos, RI, GBS neg. RPR re-collected, will result in 1-2 days. Patient reports she desires to continue with IOL with cervical ripening as planned, consents signed 11/13/[address] Ray. Unable to find copy from office, re-obtained copy of consent today at bedside. Patient has not other questions or concerns at this time, desires to continue with IOL. 11/15/20 03:30 11/15/20 03:35 Functional Status: Reports: Pain Controlled, Tolerating Diet, Ambulating, Urinating - Review of Systems General: Reports: No Symptoms HEENT: Reports: No Symptoms Pulmonary: Reports: No Symptoms Cardiovascular: Reports: No Symptoms Gastrointestinal: Reports: No Symptoms Genitourinary: Reports: No Symptoms Musculoskeletal: Reports: No Symptoms Skin: Reports: No Symptoms Neurological: Reports: No Symptoms Psychiatric: Reports: No Symptoms - Patient Data Vitals - Most Recent: Last Vital Signs Temp 96.3 F L 11/16/20 07:50 Pulse 67 11/16/20 07:50 Resp 16 11/16/20 07:50 BP 106/68 11/16/20 07:50 Pulse Ox 97 11/16/20 07:50 Weight - Most Recent: 230 lb Lab Results - Last 24 hrs: Laboratory Results - last 24 hr 11/15/20 11/16/20 Range/Units 12:04 06:35 WBC 13.42 H (4.0-11.0) K/uL RBC 3.47 L (4.30-5.90) M/uL Hgb 11.2 L 9.8 L (12.0-16.0) g/dL Hct 34.0 L 30.1 L (36.0-46.0) % MCV 86.7 (80.0-98.0) fL MCH 28.2 (27.0-32.0) pg MCHC 32.6 (31.0-37.0) g/dL RDW Std Deviation 43.9 (28.0-62.0) fl RDW Coeff of Brunilda 14 (11.0-15.0) % Plt Count 174 (150-400) K/uL MPV 12.60 H (7.40-12.00) fL Nucleated RBC % 0.0 /100WBC Nucleated RBCs # 0 K/uL Med Orders - Current: Current Medications Acetaminophen (Acetaminophen 500 Mg Tab) 500 mg PO Q4H PRN PRN Reason: Pain (mild 1-3) Acetaminophen (Acetaminophen 500 Mg Tab) 1,000 mg PO Q4H PRN PRN Reason: Pain (mild 1-3) Last Admin: 11/15/20 15:02 Dose: 1,000 mg Documented by: Benzocaine/Menthol (Benzocaine/Menthol 20%-0.5% Brogue 78 Gm Cannister) 78 gm TOP ASDIRECTED PRN PRN Reason: Perineal Comfort Measure Last Admin: 11/15/20 09:59 Dose: 1 can Documented by: Bisacodyl (Bisacodyl 10 Mg Supp) 10 mg RECTAL ONETIME PRN PRN Reason: Constipation Docusate Sodium (Docusate Sodium 100 Mg Cap) 100 mg PO Q12H PRN PRN Reason: Constipation Emollient Ointment (Lanolin 100% Cream 7 Gm Tube) 0 gm TOP ASDIRECTED PRN PRN Reason: Sore Nipples Ibuprofen (Ibuprofen 400 Mg Tab) 400 mg PO Q4H PRN PRN Reason: Pain (mild 1-3) Ibuprofen (Ibuprofen 800 Mg Tab) 800 mg PO Q6H PRN PRN Reason: Cramping Last Admin: 11/15/20 23:42 Dose: 800 mg Documented by: Oxycodone HCl (Oxycodone 5 Mg Tab) 5 mg PO Q2H PRN PRN Reason: Pain (severe 7-10) Witch Radha (Witch Radha Medicated Pads 40/Jar) 1 pad TOP ASDIRECTED PRN PRN Reason: comfort care Last Admin: 11/15/20 10:00 Dose: 1 container Documented by: Discontinued Medications Butorphanol Tartrate (Butorphanol 1 Mg/Ml Sdv) 1 mg IVPUSH Q1H PRN PRN Reason: Pain (severe 7-10) Carboprost Tromethamine (Carboprost Tromethamine 250 Mcg/1 Ml Amp) 250 mcg IM ASDIRECTED PRN PRN Reason: Post Hemorrhage Fentanyl (Fentanyl 100 Mcg/2 Ml Sdv) Confirm Administered Dose 200 mcg .ROUTE .STK-MED ONE Stop: 11/15/20 03:48 Last Admin: 11/16/20 08:29 Dose: Not Given Documented by: Lactated Ringer's (Ringers, Lactated) 1,000 mls @ 150 mls/hr IV ASDIRECTED [facility] Last Admin: 11/15/20 08:28 Dose: 900 mls/hr Documented by: Oxytocin/Sodium Chloride (Oxytocin 30 Unit In Ns 0.9% 500 Ml Premix) 30 unit in 500 mls @ 999 mls/hr IV TITRATE [facility] Last Admin: 11/15/20 08:28 Dose: 745 mls/hr Documented by: Tranexamic Acid 1,000 mg/ (Sodium Chloride) 110 mls @ 660 mls/hr IV ONETIME PRN PRN Reason: Bleeding Last Admin: 11/15/20 08:29 Dose: 660 mls/hr Documented by: Oxytocin/Sodium Chloride (Oxytocin 30 Unit In Ns 0.9% 500 Ml Premix) 30 unit in 500 mls @ 2 mls/hr IV TITRATE [facility]; Protocol Ropivacaine (Naropin 0.2%) Confirm Administered Dose 200 mls @ as directed .ROUTE .STWeAre.Us-MED ONE Stop: 11/15/20 03:47 Last Admin: 11/16/20 08:30 Dose: Not Given Documented by: Ampicillin Sodium 2 gm/ Sodium (Chloride) 100 mls @ 200 mls/hr IV ONETIME ONE Stop: 11/15/20 10:14 Last Admin: 11/15/20 10:00 Dose: 200 mls/hr Documented by: Lidocaine HCl (Lidocaine 1% 50 Ml Mdv) 50 ml INJECT ONETIME PRN PRN Reason: Laceration repair Methylergonovine Maleate (Methylergonovine 0.2 Mg/1 Ml Amp) 0.2 mg IM ASDIR ECTED PRN PRN Reason: Post Hemorrhage Last Admin: 11/15/20 07:51 Dose: 0.2 mg Documented by: Misoprostol (Misoprostol 200 Mcg Tab) 200 mcg PO ONETIME PRN PRN Reason: Post Hemorrhage Last Admin: 11/15/20 08:29 Dose: 1,000 mcg Documented by: Misoprostol (Misoprostol 25 Mcg (1/4 Of 100 Mcg) Tab) 25 mcg VAG ONETIME PRN PRN Reason: Cervical Ripening Last Admin: 11/15/20 00:24 Dose: 25 mcg Documented by: Misoprostol (Misoprostol 25 Mcg (1/4 Of 100 Mcg) Tab) 25 mcg VAG Q4H PRN PRN Reason: Cervical Ripening Last Admin: 11/15/20 06:14 Dose: 25 mcg Documented by: Misoprostol (Misoprostol 25 Mcg (1/4 Of 100 Mcg) Tab) 25 mcg PO ONETIME ONE Stop: 11/14/20 23:46 Last Admin: 11/15/20 00:23 Dose: 25 mcg Documented by: Misoprostol (Misoprostol 25 Mcg (1/4 Of 100 Mcg) Tab) 25 mcg PO Q4H [facility] Last Admin: 11/15/20 06:13 Dose: 25 mcg Documented by: Misoprostol (Misoprostol 200 Mcg Tab) Confirm Administered Dose 1,000 mcg .ROUTE .STK-MED ONE Stop: 11/15/20 12:01 Last Admin: 11/16/20 08:30 Dose: Not Given Documented by: Nalbuphine HCl (Nalbuphine 10 Mg/1 Ml Vial) 10 mg IVPUSH Q1H PRN PRN Reason: Pain (severe 7-10) Last Admin: 11/15/20 02:46 Dose: 10 mg Documented by: Ondansetron HCl (Ondansetron 4 Mg/2 Ml Sdv) 4 mg IVPUSH Q4H PRN PRN Reason: Nausea/Vomiting Penicillin G Benzathine (Penicillin G Benzathine 1,200,000 Units/2 Ml Syringe) 2.4 millunits IM ONETIME ONE Stop: 11/15/20 10:47 Last Admin: 11/15/20 11:28 Dose: 2.4 millunits Documented by: Sodium Chloride (Sodium Chloride 0.9% 10 Ml Syringe) 10 ml FLUSH ASDIRECTED PRN PRN Reason: Keep Vein Open Sodium Chloride (Sodium Chloride 0.9% 2.5 Ml Syringe) 2.5 ml FLUSH ASDIRECTED PRN PRN Reason: Keep Vein Open Sodium Chloride (Sodium Chloride 0.9% 10 Ml Sdv) 10 ml IV ASDIRECTED PRN PRN Reason: IV Use Sterile Water (Water For Irrigation,Sterile 1,000 Ml Container) 1,000 ml IRR ASDIRECTED PRN PRN Reason: delivery Last Admin: 11/15/20 08:28 Dose: 1,000 ml Documented by: Terbutaline Sulfate (Terbutaline 1 Mg/Ml Sdv) 0.25 mg SUBCUT ASDIRECTED PRN PRN Reason: Tacysystole Tranexamic Acid (Tranexamic Acid 1,000 Mg/10 Ml Amp) Confirm Administered Dose 1,000 mg .ROUTE .K-MED ONE Stop: 11/15/20 12:02 Last Admin: 11/16/20 08:30 Dose: Not Given Documented by: - Exam General: Reports: Alert, Oriented, Cooperative, No Acute Distress Lungs: Reports: Clear to Auscultation, Normal Respiratory Effort Cardiovascular: Reports: Regular Rate, Regular Rhythm GI/Abdominal Exam: Soft, Non-Tender (Female) Exam: Deferred Rectal (Female) Exam: Deferred Back Exam: Reports: Normal Inspection, Full Range of Motion Extremities: Normal Inspection, Normal Range of Motion, Non-Tender, Normal Capillary Refill Skin: Reports: Warm, Dry, Intact Neurological: Reports: No New Focal Deficit, Normal Speech, Normal Tone, Sensation Intact Psy/Mental Status: Reports: Alert, Normal Affect, Normal Mood
[2020-11-16] MEDS: Ibuprofen 800 MG Tab PO PRN (09:00)
--- NOTE | 2020-11-16 09:36 | OR ---
SURGEON: Akshat Ray MD DATE OF PROCEDURE: 11/15/2020 Ms. Mcelroy is a 25-year-old patient. She is para 2-0-0-2. She is at 41+ weeks. She is admitted for elective induction with Cytotec and Pitocin. The patient has a history of retained products of conception in her previous with bleeding. The patient has responded to the induction, and she had a precipitous labor, attended by the book or script editor, and later on, I was called because of inability to remove or express the placenta with moderate amount of bleeding. At the time of my arrival to the hospital, the patient was stable. Her vital signs are stable. She already has close to 700 mL to 800 mL of bleeding, and the placenta was still in the uterus. After explaining what I am going to do to the patient, I gowned, and I was able to remove the placenta manually without any problem and check in the uterus. After removal of placenta, there were no retained products of conception. The patient had already received Pitocin, Methergine, and the Cytotec. I ordered 1000 mg of PLT for her to enhance her stop bleeding, and after observing the patient for 30 to 40 minutes, there was minimum vaginal bleeding at this time and expected bleeding. We will follow the patient, and we will check her hemoglobin and hematocrit frequently to evaluate whether she needed blood transfusion for her condition. MARTHA / BROOKE /[id number]
== END 2020-11-16 11:08 | disposition home or self-care (01) | DRG 806 ==
LOC: MW.OB 21:30 → MW.OBCHECK 21:30 → MW.OB 22:04 → MW.OBCHECK 22:04 → OBSVTOIN 11-15 07:40 → MW.OB 11-15 11:30
PROVIDERS: ADMIT Obstetrics & Gynecology; ATTEND Obstetrics & Gynecology
PROC: 10E0XZZ Delivery of Products of Conception, External Approach (ICD-10-PCS; principal; 2020-11-15)
PROC: 10D17Z9 Manual Extraction of Products of Conception, Retained, Via Natural or Artificial Opening (ICD-10-PCS; 2020-11-15)
PROC: 3E0P7VZ Introduction of Hormone into Female Reproductive, Via Natural or Artificial Opening (ICD-10-PCS; 2020-11-15)
PROC: 10907ZC Drainage of Amniotic Fluid, Therapeutic from Products of Conception, Via Natural or Artificial Opening (ICD-10-PCS; 2020-11-15)
PROC: 3E033VJ Introduction of Other Hormone into Peripheral Vein, Percutaneous Approach (ICD-10-PCS; 2020-11-15)
PROC: 3E0R3BZ Introduction of Anesthetic Agent into Spinal Canal, Percutaneous Approach (ICD-10-PCS; 2020-11-15)
PROC: 00HU33Z Insertion of Infusion Device into Spinal Canal, Percutaneous Approach (ICD-10-PCS; 2020-11-15)
DX: O48.0 Post-term pregnancy (principal); O72.0 Third-stage hemorrhage; Z37.0 Single live birth; Z20.822 Contact with and (suspected) exposure to COVID-19; Z3A.41 41 weeks gestation of pregnancy; Z87.891 Personal history of nicotine dependence
CPT/HCPCS: 36415; 51702; 59025; 59409; 85014; 85018; 85027; 86592; 86593; 86780; 86850; 86900; 86901; A9270-GY; J0290; J0561; J2210; J2300; J2590; J7120; U0002

== ENCOUNTER 2021-03-13 21:23 | Emergency (ER) | payer MEDICAID | END 2021-03-13 22:25 | disposition left against medical advice (07) | LOC: MW.ED 21:23 | DX: Z53.21 Procedure and treatment not carried out due to patient leaving prior to being seen by health care provider (principal) ==

== ENCOUNTER 2021-07-20 22:07 | Emergency (ER) | payer MEDICAID ==
[2021-07-20] MEDS ORDERED: Ibuprofen 600 MG Tab PO ONE (23:40)
[2021-07-20] MEDS ORDERED: traMADol 50 MG Tab PO ONE (23:40)
== END 2021-07-21 00:11 | disposition home or self-care (01) ==
LOC: MW.ED 22:07
DX: S93.501A Unspecified sprain of right great toe, initial encounter (principal); W50.0XXA Accidental hit or strike by another person, initial encounter
CPT/HCPCS: 73630; 99283; A9270; 99282

== ENCOUNTER 2021-12-12 22:49 | Emergency (ER) | payer MEDICAID ==
[2021-12-13 00:16] LABS: CARBON DIOXIDE,CO2 28.3 mmol/L (21.0-32.0); POTASSIUM,K 3.9 mmol/L (3.5-5.1)
[2021-12-13] MEDS ORDERED: Ketorolac 30 MG/ML SDV IM ONE (00:36)
[2021-12-13 01:41] LABS: C. TRACHOMATIS BY PCR NOT DETECTED; N. GONORRHOEAE BY PCR NOT DETECTED
== END 2021-12-13 00:50 | disposition home or self-care (01) ==
LOC: MW.ED 22:49
DX: O03.4 Incomplete spontaneous abortion without complication (principal)
CPT/HCPCS: 36415; 80053; 81001; 84702; 85025; 87480; 87491; 87510; 87591; 87660; 96372; 99283; J1885

== ENCOUNTER 2022-02-07 06:46 | Emergency (ER) | payer MEDICAID | END 2022-02-07 08:02 | disposition home or self-care (01) | LOC: MW.ED 06:46 | DX: H60.501 Unspecified acute noninfective otitis externa, right ear (principal) | CPT/HCPCS: 99282 ==

== ENCOUNTER 2022-02-09 12:58 | Emergency (ER) | payer MEDICAID ==
[2022-02-09] MEDS ORDERED: Sodium Chloride 0.9% 1,000 ML IV ONE (16:26)
[2022-02-09] MEDS ORDERED: Morphine 4 MG/ML Syringe IVPUSH ONE (16:26)
[2022-02-09] MEDS ORDERED: Ondansetron 4 MG/2 ML SDV IVPUSH ONE (16:26)
[2022-02-09 17:24] LABS: CARBON DIOXIDE,CO2 26.6 mmol/L (21.0-32.0); POTASSIUM,K 3.2 mmol/L (3.5-5.1)
[2022-02-09] MEDS ORDERED: methylPREDNISolone Sodium Succinate 125 MG/2 ML SDV IVPUSH ONE (18:51)
[2022-02-09] MEDS ORDERED: cefTRIAXone 1 GM in Sodium Chloride 0.9% 50 ML IV ONE (18:51)
[2022-02-09] MEDS ORDERED: metroNIDAZOLE 250 MG Tab PO ONE (20:04)
== END 2022-02-09 20:38 | disposition home or self-care (01) ==
LOC: MW.ED 12:58
DX: H66.001 Acute suppurative otitis media without spontaneous rupture of ear drum, right ear (principal); H60.501 Unspecified acute noninfective otitis externa, right ear; A59.9 Trichomoniasis, unspecified; Z79.899 Other long term (current) drug therapy
CPT/HCPCS: 36415; 70486; 80053; 81001; 83605; 84703; 85025; 87040; 87086; 96361; 96365; 96375; 99283; A9270; J0696; J2270; J2405; J2930; J7030

== ENCOUNTER 2023-05-19 11:54 | Emergency (ER) | payer MEDICAID | END 2023-05-19 12:32 | disposition home or self-care (01) | LOC: MW.ED 11:54 | DX: L08.9 Local infection of the skin and subcutaneous tissue, unspecified (principal); Z75.8 Other problems related to medical facilities and other health care | CPT/HCPCS: 99283 ==

== ENCOUNTER 2023-08-28 19:26 | Emergency (ER) | payer SELFPAY | END 2023-08-28 19:45 | disposition left against medical advice (07) | LOC: MW.ED 19:26 | DX: Z53.21 Procedure and treatment not carried out due to patient leaving prior to being seen by health care provider (principal) ==

== ENCOUNTER 2024-01-16 20:49 | Emergency (ER) | payer SELFPAY ==
[2024-01-16] MEDS: LORazepam 2 MG/ML SDV IVPUSH STA (21:24)
[2024-01-16 22:14] LABS: APPEARANCE,URINE CLEAR; BILIRUBIN,URINE NEGATIVE (NEGATIVE); COLOR,URINE YELLOW; GLUCOSE,URINE NEGATIVE (NEGATIVE); KETONES,URINE NEGATIVE (NEGATIVE); LEUKOCYTE ESTERASE,URINE NEGATIVE (NEGATIVE); NITRITE,URINE NEGATIVE (NEGATIVE); OCCULT BLOOD,URINE NEGATIVE (NEGATIVE); PROTEIN,URINE NEGATIVE (NEGATIVE); UROBILINOGEN,URINE 0.2 EU/dL (<2.0)
[2024-01-16 22:24] LABS: AMPHETAMINES SCREEN, URINE PRESUMPTIVE POSITIVE (CUTOFF=500); BARBITURATE SCREEN,URINE NEGATIVE (CUTOFF=200); BENZODIAZEPINES SCREEN,URINE NEGATIVE (CUTOFF=150); BUPRENORPHINE SCREEN,URINE NEGATIVE (CUTOFF=10); METHADONE SCREEN, URINE NEGATIVE (CUTOFF=200); METHAMPHETAMINES SCREEN, URINE PRESUMPTIVE POSITIVE (CUTOFF=500); OXYCODONE SCREEN,URINE NEGATIVE (CUT0FF=100); PCP SCREEN,URINE NEGATIVE (CUTOFF=25); THC SCREEN,URINE 20 NG/ML PRESUMPTIVE POSITIVE (CUTOFF=50)
[2024-01-16 22:30] LABS: BASOPHILS ABSOLUTE AUTO 0.03 K/uL (0.00-0.20); BASOPHILS PERCENT AUTO 0.4 % (0.0-1.0); EOSINOPHILS ABSOLUTE AUTO 0.04 K/uL (0.00-0.45); EOSINOPHILS PERCENT AUTO 0.5 % (0.0-6.0); HEMATOCRIT 41.1 % (37.0-47.0); IMMATURE GRAN ABSOLUTE AUTO 0.02 K/uL (0.00-0.05); IMMATURE GRAN PERCENT AUTO 0.3 % (0.0-0.4); LYMPHOCYTES PERCENT AUTO 19.5 % (24.0-44.0); MEAN CORPUSCULAR HEMOGLOBIN 29.5 pg (28.0-32.0); MEAN CORPUSCULAR HGB CONC 34.1 g/dL (32.0-36.0); MEAN CORPUSCULAR VOLUME 86.7 fL (83.0-99.0); MEAN PLATELET VOLUME 11.3 fL (9.4-12.3); MONOCYTES ABSOLUTE AUTO 0.38 K/uL (0.00-0.80); MONOCYTES PERCENT AUTO 4.9 % (0.0-8.0); NEUTROPHILS ABSOLUTE AUTO 5.72 K/uL (1.80-7.70); NEUTROPHILS PERCENT AUTO 74.4 % (41.0-71.0); PLATELET COUNT,PLT 235 K/uL (150-400); RED BLOOD CELL COUNT 4.74 M/uL (4.10-5.30); WHITE BLOOD CELL COUNT,WBC 7.69 K/uL (3.9-11.3)
[2024-01-16 22:54] LABS: A/G RATIO 0.9 (0.9-1.6); ALANINE AMINOTRANSFERASE,ALT 26 IU/L (14-63); ALBUMIN 3.6 g/dL (3.4-5.0); ALKALINE PHOSPHATASE 109 U/L (46-116); ASPARTATE AMNIOTRANSFERASE,AST 29 IU/L (15-37); BILIRUBIN TOTAL 0.7 mg/dL (0.2-1.0); BLOOD UREA NITROGEN,BUN 8 mg/dL (7.0-18.0); CALCIUM 9.1 mg/dL (8.5-10.1); CARBON DIOXIDE,CO2 28.2 mmol/L (21.0-32.0); CHLORIDE,CL 103 mmol/L (98-107); CREATININE 0.9 mg/dL (0.6-1.0); GLUCOSE RANDOM 101 mg/dL (74-106); LIPASE 21 U/L (16-77); POTASSIUM,K 3.7 mmol/L (3.5-5.1); PROTEIN TOTAL,TP 7.8 g/dL (6.4-8.2); SODIUM,NA 138 mmol/L (136-145)
[2024-01-16 23:02] LABS: ESTIMATED GFR 90 mL/min (>60)
== END 2024-01-16 23:40 | disposition home or self-care (01) ==
LOC: MW.ED 20:49
DX: F12.10 Cannabis abuse, uncomplicated (principal); F15.10 Other stimulant abuse, uncomplicated; Z75.8 Other problems related to medical facilities and other health care
CPT/HCPCS: 36415; 70450; 71046; 80053; 80305; 81003; 83690; 83735; 84484; 84703; 85025; 85379; 87428; 93005; 96374; 99285; J2060

== ENCOUNTER 2024-04-02 20:41 | Inpatient (IN) | payer MEDICAID ==
[2024-04-02] MEDS ORDERED: Sodium Chloride 0.9% 10 ML Syringe FLUSH PRN (21:44)
[2024-04-02] MEDS ORDERED: Sodium Chloride 0.9% 2.5 ML Syringe FLUSH PRN (21:44)
[2024-04-02] MEDS: Sodium Chloride 0.9% 1,000 ML IV ONE (22:10)
[2024-04-02] MEDS: Ketorolac 30 MG/ML SDV IVPUSH ONE (22:19)
[2024-04-02] MEDS: Ondansetron 4 MG/2 ML SDV IVPUSH ONE (22:19)
[2024-04-02 22:23] LABS: BASOPHILS ABSOLUTE AUTO 0.03 K/uL (0.00-0.20); BASOPHILS PERCENT AUTO 0.2 % (0.0-1.0); HEMATOCRIT 35.7 % (37.0-47.0); HEMOGLOBIN 12.4 g/dL (12.0-16.0); IMMATURE GRAN ABSOLUTE AUTO 0.17 K/uL (0.00-0.05); LYMPHOCYTES ABSOLUTE AUTO 0.39 K/uL (1.00-4.80); LYMPHOCYTES PERCENT AUTO 2.3 % (24.0-44.0); MEAN CORPUSCULAR HEMOGLOBIN 29.5 pg (28.0-32.0); MEAN CORPUSCULAR HGB CONC 34.7 g/dL (32.0-36.0); MEAN PLATELET VOLUME 11.6 fL (9.4-12.3); MONOCYTES ABSOLUTE AUTO 0.55 K/uL (0.00-0.80); MONOCYTES PERCENT AUTO 3.2 % (0.0-8.0); NEUTROPHILS ABSOLUTE AUTO 16.13 K/uL (1.80-7.70); NEUTROPHILS PERCENT AUTO 93.3 % (41.0-71.0); PLATELET COUNT,PLT 149 K/uL (150-400); WHITE BLOOD CELL COUNT,WBC 17.27 K/uL (3.9-11.3)
[2024-04-02] MEDS: Acetaminophen 500 MG Tab PO ONE (22:48)
[2024-04-02] MEDS: cefTRIAXone 1 GM in Sodium Chloride 0.9% 50 ML IV ONE (22:51)
[2024-04-02 22:55] LABS: LACTIC ACID 0.9 mmol/L (0.4-2.0)
[2024-04-02 23:02] LABS: A/G RATIO 0.8 (0.9-1.6); ALBUMIN 2.8 g/dL (3.4-5.0); BILIRUBIN TOTAL 0.9 mg/dL (0.2-1.0); CALCIUM 8.7 mg/dL (8.5-10.1); CARBON DIOXIDE,CO2 24.7 mmol/L (21.0-32.0); CREATININE 0.7 mg/dL (0.6-1.0); EST CRCL DRUG DOSING (CG) 96.32 mL/min; POTASSIUM,K 3.1 mmol/L (3.5-5.1); PROTEIN TOTAL,TP 6.5 g/dL (6.4-8.2); TSH ULTRASENSITIVE 0.55 uIU/mL (0.36-3.74)
[2024-04-02] MEDS: VANCOmycin 2 GM/400 ML 2 GM in Premix Bag 1 BAG IV ONE (23:04)
[2024-04-02 23:28] LABS: APPEARANCE,URINE CLOUDY; BILIRUBIN,URINE NEGATIVE (NEGATIVE); COLOR,URINE RED; GLUCOSE,URINE NEGATIVE (NEGATIVE); KETONES,URINE 40 mg/dL (NEGATIVE); LEUKOCYTE ESTERASE,URINE TRACE (NEGATIVE); NITRITE,URINE POSITIVE (NEGATIVE); OCCULT BLOOD,URINE LARGE (NEGATIVE); PH,URINE 7.5 (5.0-8.0); PROTEIN,URINE >=300 mg/dL (NEGATIVE)
[2024-04-02 23:59] LABS: BACTERIA,URINE FEW (NEGATIVE); EPITHELIAL CELLS,URINE FEW (NONE-FEW); RBC,URINE TOO NUMEROUS TO CT (0-2/HPF)
[2024-04-03 01:06] LABS: RBC,CSF 0 /uL (0-0); WBC,CSF 0 /uL (0-5)
[2024-04-03 01:34] LABS: APPEARANCE CSF CLEAR; COLOR,CSF COLORLESS
[2024-04-03] MEDS ORDERED: Lidocaine 1% 5 ML VIAL ONE (03:28)
[2024-04-03] MEDS ORDERED: Dexamethasone 4 MG/ML 5 ML MDV ONE (03:28)
[2024-04-03] MEDS ORDERED: fentaNYL 100 MCG/2 ML SDV ONE (03:28)
[2024-04-03] MEDS ORDERED: Ondansetron 4 MG/2 ML SDV ONE (03:28)
[2024-04-03] MEDS ORDERED: Propofol 200 MG/20 ML SDV ONE (03:29)
[2024-04-03] MEDS ORDERED: Promethazine 25 MG/ML SDV IM PRN (03:48)
[2024-04-03] MEDS ORDERED: Sodium Chloride 0.9% 2.5 ML Syringe FLUSH PRN (03:48)
[2024-04-03] MEDS ORDERED: Ondansetron 4 MG Tab.DIS PO PRN (03:48)
[2024-04-03] MEDS ORDERED: Ondansetron 4 MG/2 ML SDV IVPUSH PRN ×2 (03:48→08:03)
[2024-04-03] MEDS ORDERED: Sodium Chloride 0.9% 20 ML SDV IV PRN (03:48)
[2024-04-03] MEDS ORDERED: Sodium Chloride 0.9% 10 ML Syringe FLUSH PRN (03:48)
[2024-04-03] MEDS ORDERED: Morphine 4 MG/ML Syringe IVPUSH PRN (03:48)
[2024-04-03 07:54] LABS: HEPATITIS C AB# 0.03 INDEX (<0.8); HIV12 AG/AB 4TH GEN W/REFLEX 0.3 INDEX (<1.0)
[2024-04-03] MEDS ORDERED: Phenylephrine HCl In 0.9% NaCl 1 MG/10 ML Syringe IVPUSH PRN (08:03)
[2024-04-03] MEDS ORDERED: Naloxone 0.4 MG/ML SDV IVPUSH PRN (08:03)
[2024-04-03] MEDS ORDERED: fentaNYL 50 MCG/ML SDV IVPUSH PRN (08:03)
[2024-04-03] MEDS ORDERED: Metoclopramide 10 MG/2 ML SDV IVPUSH PRN (08:03)
[2024-04-03] MEDS ORDERED: Albuterol 0.083% 2.5 MG/3 ML Neb Soln NEB PRN (08:03)
[2024-04-03] MEDS ORDERED: HYDROmorphone 1 MG/ML Syringe IVPUSH PRN (08:03)
[2024-04-03] MEDS ORDERED: Morphine 2 MG/ML SYRINGE IVPUSH PRN (08:03)
[2024-04-03] MEDS: Piperacillin/Tazobactam 4.5 GM in Sodium Chloride 0.9% 100 ML IV SCH (08:26)
[2024-04-03] MEDS: Sodium Chloride 0.9% 1,000 ML IV SCH (08:27)
[2024-04-03] MEDS: Potassium Chloride 20 MEQ Tab.ER PO ONE (10:12)
[2024-04-03 10:34] LABS: AMPHETAMINES SCREEN, URINE PRESUMPTIVE POSITIVE (CUTOFF=500); BARBITURATE SCREEN,URINE NEGATIVE (CUTOFF=200); BENZODIAZEPINES SCREEN,URINE NEGATIVE (CUTOFF=150); BUPRENORPHINE SCREEN,URINE NEGATIVE (CUTOFF=10); METHADONE SCREEN, URINE NEGATIVE (CUTOFF=200); METHAMPHETAMINES SCREEN, URINE PRESUMPTIVE POSITIVE (CUTOFF=500); OXYCODONE SCREEN,URINE NEGATIVE (CUT0FF=100); PCP SCREEN,URINE NEGATIVE (CUTOFF=25); THC SCREEN,URINE 20 NG/ML PRESUMPTIVE POSITIVE (CUTOFF=50)
[2024-04-03 12:00] LABS: C. TRACHOMATIS BY PCR NOT DETECTED; N. GONORRHOEAE BY PCR NOT DETECTED
[2024-04-03] MEDS: VANCOmycin 1.5 GM in Sodium Chloride 0.9% 250 ML IV SCH (12:16)
[2024-04-03 12:18] LABS: BASOPHILS ABSOLUTE AUTO 0.01 K/uL (0.00-0.20); BASOPHILS PERCENT AUTO 0.1 % (0.0-1.0); HEMATOCRIT 31.4 % (37.0-47.0); HEMOGLOBIN 10.9 g/dL (12.0-16.0); IMMATURE GRAN ABSOLUTE AUTO 0.03 K/uL (0.00-0.05); IMMATURE GRAN PERCENT AUTO 0.3 % (0.0-0.4); LYMPHOCYTES ABSOLUTE AUTO 0.11 K/uL (1.00-4.80); MEAN CORPUSCULAR HEMOGLOBIN 29.7 pg (28.0-32.0); MEAN CORPUSCULAR HGB CONC 34.7 g/dL (32.0-36.0); MEAN CORPUSCULAR VOLUME 85.6 fL (83.0-99.0); MEAN PLATELET VOLUME 11.3 fL (9.4-12.3); MONOCYTES ABSOLUTE AUTO 0.03 K/uL (0.00-0.80); MONOCYTES PERCENT AUTO 0.3 % (0.0-8.0); NEUTROPHILS ABSOLUTE AUTO 10.56 K/uL (1.80-7.70); NEUTROPHILS PERCENT AUTO 98.3 % (41.0-71.0); PLATELET COUNT,PLT 134 K/uL (150-400); RED BLOOD CELL COUNT 3.67 M/uL (4.10-5.30); WHITE BLOOD CELL COUNT,WBC 10.74 K/uL (3.9-11.3)
[2024-04-03 12:53] LABS: A/G RATIO 0.7 (0.9-1.6); ALBUMIN 2.4 g/dL (3.4-5.0); BILIRUBIN TOTAL 0.7 mg/dL (0.2-1.0); CALCIUM 8.8 mg/dL (8.5-10.1); CARBON DIOXIDE,CO2 24.5 mmol/L (21.0-32.0); CREATININE 0.6 mg/dL (0.6-1.0); EST CRCL DRUG DOSING (CG) 112.38 mL/min; MAGNESIUM 1.6 mg/dL (1.8-2.4); PHOSPHORUS 3.3 mg/dL (2.6-4.7); POTASSIUM,K 3.9 mmol/L (3.5-5.1); PROTEIN TOTAL,TP 5.9 g/dL (6.4-8.2)
[2024-04-03] MEDS: Ibuprofen 800 MG Tab PO PRN (14:04)
[2024-04-03] MEDS: Magnesium Sulf/Wat 2 GM/50 mL 2 GM in Premix Bag 1 BAG IV ONE (14:56)
[2024-04-03] MEDS: Acetaminophen 325 MG Tab PO PRN (21:03)
[2024-04-04 06:27] LABS: BASOPHILS ABSOLUTE AUTO 0.01 K/uL (0.00-0.20); BASOPHILS PERCENT AUTO 0.1 % (0.0-1.0); HEMATOCRIT 29.4 % (37.0-47.0); HEMOGLOBIN 9.9 g/dL (12.0-16.0); IMMATURE GRAN ABSOLUTE AUTO 0.04 K/uL (0.00-0.05); IMMATURE GRAN PERCENT AUTO 0.4 % (0.0-0.4); LYMPHOCYTES PERCENT AUTO 4.5 % (24.0-44.0); MEAN CORPUSCULAR HEMOGLOBIN 29.5 pg (28.0-32.0); MEAN CORPUSCULAR HGB CONC 33.7 g/dL (32.0-36.0); MEAN CORPUSCULAR VOLUME 87.5 fL (83.0-99.0); MEAN PLATELET VOLUME 12.1 fL (9.4-12.3); MONOCYTES ABSOLUTE AUTO 0.28 K/uL (0.00-0.80); MONOCYTES PERCENT AUTO 3.1 % (0.0-8.0); NEUTROPHILS ABSOLUTE AUTO 8.22 K/uL (1.80-7.70); NEUTROPHILS PERCENT AUTO 91.9 % (41.0-71.0); PLATELET COUNT,PLT 124 K/uL (150-400); RED BLOOD CELL COUNT 3.36 M/uL (4.10-5.30); WHITE BLOOD CELL COUNT,WBC 8.95 K/uL (3.9-11.3)
[2024-04-04 06:48] LABS: CALCIUM 8.2 mg/dL (8.5-10.1); CREATININE 0.7 mg/dL (0.6-1.0); EST CRCL DRUG DOSING (CG) 96.32 mL/min; MAGNESIUM 1.9 mg/dL (1.8-2.4); PHOSPHORUS 3.4 mg/dL (2.6-4.7); POTASSIUM,K 4.1 mmol/L (3.5-5.1)
[2024-04-04] MEDS: VANCOmycin 1.5 GM in Sodium Chloride 0.9% 250 ML IV SCH ×2 (11:01→20:09)
[2024-04-05 06:07] LABS: BASOPHILS ABSOLUTE AUTO 0.02 K/uL (0.00-0.20); BASOPHILS PERCENT AUTO 0.4 % (0.0-1.0); EOSINOPHILS ABSOLUTE AUTO 0.07 K/uL (0.00-0.45); EOSINOPHILS PERCENT AUTO 1.3 % (0.0-6.0); HEMATOCRIT 29.5 % (37.0-47.0); HEMOGLOBIN 9.7 g/dL (12.0-16.0); IMMATURE GRAN ABSOLUTE AUTO 0.03 K/uL (0.00-0.05); IMMATURE GRAN PERCENT AUTO 0.6 % (0.0-0.4); LYMPHOCYTES ABSOLUTE AUTO 1.09 K/uL (1.00-4.80); MEAN CORPUSCULAR HEMOGLOBIN 29.5 pg (28.0-32.0); MEAN CORPUSCULAR HGB CONC 32.9 g/dL (32.0-36.0); MEAN CORPUSCULAR VOLUME 89.7 fL (83.0-99.0); MEAN PLATELET VOLUME 12.3 fL (9.4-12.3); MONOCYTES PERCENT AUTO 5.8 % (0.0-8.0); NEUTROPHILS ABSOLUTE AUTO 3.69 K/uL (1.80-7.70); NEUTROPHILS PERCENT AUTO 70.9 % (41.0-71.0); PLATELET COUNT,PLT 104 K/uL (150-400); RED BLOOD CELL COUNT 3.29 M/uL (4.10-5.30)
[2024-04-05 06:30] LABS: CALCIUM 7.4 mg/dL (8.5-10.1); CARBON DIOXIDE,CO2 22.4 mmol/L (21.0-32.0); CREATININE 0.7 mg/dL (0.6-1.0); EST CRCL DRUG DOSING (CG) 96.32 mL/min; MAGNESIUM 1.6 mg/dL (1.8-2.4); POTASSIUM,K 3.9 mmol/L (3.5-5.1)
[2024-04-05] MEDS: Magnesium Sulf/Wat 2 GM/50 mL 2 GM in Premix Bag 1 BAG IV ONE (08:45)
[2024-04-06 05:56] LABS: BASOPHILS ABSOLUTE AUTO 0.02 K/uL (0.00-0.20); BASOPHILS PERCENT AUTO 0.3 % (0.0-1.0); EOSINOPHILS ABSOLUTE AUTO 0.11 K/uL (0.00-0.45); EOSINOPHILS PERCENT AUTO 1.7 % (0.0-6.0); HEMATOCRIT 33.4 % (37.0-47.0); HEMOGLOBIN 11.2 g/dL (12.0-16.0); IMMATURE GRAN ABSOLUTE AUTO 0.06 K/uL (0.00-0.05); IMMATURE GRAN PERCENT AUTO 0.9 % (0.0-0.4); LYMPHOCYTES ABSOLUTE AUTO 1.55 K/uL (1.00-4.80); LYMPHOCYTES PERCENT AUTO 23.9 % (24.0-44.0); MEAN CORPUSCULAR HEMOGLOBIN 29.1 pg (28.0-32.0); MEAN CORPUSCULAR HGB CONC 33.5 g/dL (32.0-36.0); MEAN CORPUSCULAR VOLUME 86.8 fL (83.0-99.0); MEAN PLATELET VOLUME 11.9 fL (9.4-12.3); MONOCYTES ABSOLUTE AUTO 0.32 K/uL (0.00-0.80); MONOCYTES PERCENT AUTO 4.9 % (0.0-8.0); NEUTROPHILS ABSOLUTE AUTO 4.43 K/uL (1.80-7.70); NEUTROPHILS PERCENT AUTO 68.3 % (41.0-71.0); PLATELET COUNT,PLT 146 K/uL (150-400); RED BLOOD CELL COUNT 3.85 M/uL (4.10-5.30); WHITE BLOOD CELL COUNT,WBC 6.49 K/uL (3.9-11.3)
[2024-04-06 06:15] LABS: CALCIUM 8.6 mg/dL (8.5-10.1); CREATININE 0.8 mg/dL (0.6-1.0); EST CRCL DRUG DOSING (CG) 84.28 mL/min; MAGNESIUM 1.9 mg/dL (1.8-2.4); POTASSIUM,K 4.2 mmol/L (3.5-5.1)
[2024-04-06] MEDS: Ketorolac 30 MG/ML SDV IVPUSH ONE (09:24)
[2024-04-06] MEDS: Metoclopramide 10 MG/2 ML SDV IVPUSH ONE (09:25)
[2024-04-06] MEDS: diphenhydrAMINE 50 MG/ML SDV IVPUSH ONE (09:26)
[2024-04-07 17:06] LABS: HEP B SURFACE AG Negative (Negative)
== END 2024-04-06 20:30 | disposition home or self-care (01) | DRG 770 ==
LOC: MW.ED 20:41 → MW.SDS 04-03 03:48 → MW.MS 04-03 03:49
PROVIDERS: ADMIT Obstetrics & Gynecology; ATTEND Obstetrics & Gynecology Obstetrics
PROC: 10D17ZZ Extraction of Products of Conception, Retained, Via Natural or Artificial Opening (ICD-10-PCS; principal; 2024-04-03 04:00)
DX: A41.9 Sepsis, unspecified organism (principal); O03.9 Complete or unspecified spontaneous abortion without complication; F17.210 Nicotine dependence, cigarettes, uncomplicated; O02.1 Missed abortion; A40.8 Other streptococcal sepsis; O08.82 Sepsis following ectopic and molar pregnancy; F41.9 Anxiety disorder, unspecified; F17.290 Nicotine dependence, other tobacco product, uncomplicated
CPT/HCPCS: 36415 ×2; 62270; 71045; 76801; 80053; 80305; 81001; 82945; 83605 ×2; 84157; 84443; 84702; 84703; 85025; 86592; 86593; 86762; 86780; 86803; 86850; 86900; 86901; 87040 ×2; 87070; 87077; 87154; 87186; 87205; 87389; 87428; 87651; 89050; 96365; 96366; 96367; 96375; 99285; A9270; J0696; J1100; J1885; J2405; J2704; J3010; J3372; J3490; J7030; 01965; 59812; 76857; 76857-26; 80048; 80202; 83735; 84100; 87147; 87184; 87340; 87491; 87591; 87641; 93306; 99291; J1200; J2003; J2543; J2765; J3371; J3475; J7050

== ENCOUNTER 2024-04-07 15:57 | Emergency (ER) | payer MEDICAID ==
[2024-04-07] MEDS ORDERED: Sodium Chloride 0.9% 2.5 ML Syringe FLUSH PRN (17:57)
[2024-04-07] MEDS ORDERED: Sodium Chloride 0.9% 10 ML Syringe FLUSH PRN (17:57)
[2024-04-07] MEDS: Sodium Chloride 0.9% 1,000 ML IV STA (18:57)
[2024-04-07 19:13] LABS: BASOPHILS ABSOLUTE AUTO 0.05 K/uL (0.00-0.20); BASOPHILS PERCENT AUTO 0.7 % (0.0-1.0); EOSINOPHILS PERCENT AUTO 1.3 % (0.0-6.0); HEMATOCRIT 41.8 % (37.0-47.0); HEMOGLOBIN 13.8 g/dL (12.0-16.0); IMMATURE GRAN ABSOLUTE AUTO 0.13 K/uL (0.00-0.05); IMMATURE GRAN PERCENT AUTO 1.7 % (0.0-0.4); LYMPHOCYTES ABSOLUTE AUTO 1.81 K/uL (1.00-4.80); LYMPHOCYTES PERCENT AUTO 23.6 % (24.0-44.0); MEAN CORPUSCULAR HEMOGLOBIN 28.9 pg (28.0-32.0); MEAN CORPUSCULAR VOLUME 87.6 fL (83.0-99.0); MEAN PLATELET VOLUME 11.5 fL (9.4-12.3); MONOCYTES ABSOLUTE AUTO 0.34 K/uL (0.00-0.80); MONOCYTES PERCENT AUTO 4.4 % (0.0-8.0); NEUTROPHILS ABSOLUTE AUTO 5.23 K/uL (1.80-7.70); NEUTROPHILS PERCENT AUTO 68.3 % (41.0-71.0); PLATELET COUNT,PLT 176 K/uL (150-400); RED BLOOD CELL COUNT 4.77 M/uL (4.10-5.30); WHITE BLOOD CELL COUNT,WBC 7.66 K/uL (3.9-11.3)
[2024-04-07] MEDS: diphenhydrAMINE 50 MG/ML SDV IVPUSH ONE (19:18)
[2024-04-07] MEDS: Ketorolac 30 MG/ML SDV IVPUSH ONE ×2 (19:18→20:10)
[2024-04-07 19:34] LABS: A/G RATIO 0.6 (0.9-1.6); BILIRUBIN TOTAL 0.3 mg/dL (0.2-1.0); CALCIUM 9.1 mg/dL (8.5-10.1); CARBON DIOXIDE,CO2 26.1 mmol/L (21.0-32.0); CREATININE 0.8 mg/dL (0.6-1.0); EST CRCL DRUG DOSING (CG) 84.28 mL/min; POTASSIUM,K 4.5 mmol/L (3.5-5.1); PROTEIN TOTAL,TP 7.9 g/dL (6.4-8.2)
[2024-04-07] MEDS: Ondansetron 4 MG/2 ML SDV IVPUSH ONE (20:09)
== END 2024-04-07 20:26 | disposition home or self-care (01) ==
LOC: MW.ED 15:57
DX: R51.9 Headache, unspecified (principal); Z79.899 Other long term (current) drug therapy; Z75.8 Other problems related to medical facilities and other health care
CPT/HCPCS: 36415; 80053; 85025; 96374; 96375; 99284; J1200; J1885; J7030

== ENCOUNTER 2024-08-23 15:36 | Emergency (ER) | payer MEDICAID ==
[2024-08-23] MEDS: Acetaminophen/HYDROcodone 325-5 MG Tab PO ONE (16:56)
== END 2024-08-23 18:03 | disposition home or self-care (01) ==
LOC: MW.ED 15:36
DX: L03.115 Cellulitis of right lower limb (principal); Z79.899 Other long term (current) drug therapy
CPT/HCPCS: 73562; 99283; A9270; 99282

== ENCOUNTER 2024-11-05 13:59 | Emergency (ER) | payer SELFPAY ==
[2024-11-05] MEDS: Amoxicillin/Clavulanate K 875-125 MG Tab PO ONE (15:09)
[2024-11-05 15:19] LABS: BASOPHILS ABSOLUTE AUTO 0.03 K/uL (0.00-0.20); BASOPHILS PERCENT AUTO 0.3 % (0.0-1.0); EOSINOPHILS ABSOLUTE AUTO 0.04 K/uL (0.00-0.45); EOSINOPHILS PERCENT AUTO 0.3 % (0.0-6.0); IMMATURE GRAN ABSOLUTE AUTO 0.04 K/uL (0.00-0.05); IMMATURE GRAN PERCENT AUTO 0.3 % (0.0-0.4); LYMPHOCYTES ABSOLUTE AUTO 1.56 K/uL (1.00-4.80); LYMPHOCYTES PERCENT AUTO 13.3 % (24.0-44.0); MEAN PLATELET VOLUME 11.3 fL (9.4-12.3); MONOCYTES ABSOLUTE AUTO 0.63 K/uL (0.00-0.80); MONOCYTES PERCENT AUTO 5.4 % (0.0-8.0); NEUTROPHILS ABSOLUTE AUTO 9.44 K/uL (1.80-7.70); NEUTROPHILS PERCENT AUTO 80.4 % (41.0-71.0); NRBC ABSOLUTE 0.00 K/uL (0.00-0.02); NRBC PERCENT 0.0 /100WBC (0.0-0.2); PLATELET COUNT,PLT 217 K/uL (150-400); RED BLOOD CELL COUNT 4.94 M/uL (4.10-5.30); WHITE BLOOD CELL COUNT,WBC 11.74 K/uL (3.9-11.3)
[2024-11-05 15:38] LABS: A/G RATIO 0.9 (0.9-1.6); ALANINE AMINOTRANSFERASE,ALT 33.0 IU/L (14-63); ASPARTATE AMNIOTRANSFERASE,AST 18.0 IU/L (15-37); BILIRUBIN TOTAL 1.0 mg/dL (0.2-1.0); BLOOD UREA NITROGEN,BUN 14.0 mg/dL (7.0-18.0); CARBON DIOXIDE,CO2 27.9 mmol/L (21.0-32.0); CHLORIDE,CL 101.0 mmol/L (98-107); CREATININE 0.8 mg/dL (0.6-1.0); EST CRCL DRUG DOSING (CG) 83.54 mL/min; GLUCOSE RANDOM 80.0 mg/dL (74-106); POTASSIUM,K 3.5 mmol/L (3.5-5.1); PROTEIN TOTAL,TP 7.8 g/dL (6.4-8.2); SODIUM,NA 141.0 mmol/L (136-145)
[2024-11-05 15:40] LABS: ESTIMATED GFR 104.0 mL/min (>60); LACTIC ACID 1.3 mmol/L (0.4-2.0)
== END 2024-11-05 15:55 | disposition home or self-care (01) ==
LOC: MW.ED 13:59
DX: S51.851A Open bite of right forearm, initial encounter (principal); Z75.3 Unavailability and inaccessibility of health-care facilities; Z79.899 Other long term (current) drug therapy; W55.01XA Bitten by cat, initial encounter
CPT/HCPCS: 36415; 80053; 83605; 85025; 87040; 96360; 99283; A9270; J7030